=== PATIENT | male | born 1980 | race Hispanic/Latino ===

== ENCOUNTER 2018-05-04 10:45 | Emergency (ER) | payer SELFPAY ==
[2018-05-04 11:16] LABS: Absolute Lymphocytes (CBC) 0.9 K/uL (0.7-4.9); Absolute Monocytes 0.5 K/uL (0.1-1.3); Absolute Neutrophil 6.8 K/uL (1.8-8.0); Basophils % 0.2 % (0-1.3); Eosinophils % 0.4 % (0-4.4); Hematocrit 44.3 % (39.6-49.0); Lymphocytes % 10.6 % (15.3-44.8); MCH 30.4 pg (27.0-35.0); MCV 88.5 fL (80-100); Monocytes % 6.5 % (3.3-12.3); Protime INR 1.07
[2018-05-04 11:28] LABS: ALT/SGPT 29 U/L (12-78); AST/SGOT 17 U/L (15-37); Albumin 4.3 g/dL (3.4-5.0); Alkaline Phosphatase 108 U/L (45-117); BUN Blood Urea Nitrogen 12 mg/dL (7-18); Bicarbonate 25 mmol/L (21-32); Bilirubin Total 2.6 mg/dL (0.2-1.0); Glucose Level 104 mg/dL (74-106); Magnesium 2.2 mg/dL (1.8-2.4); NT PRO-BNP 64 pg/mL (<125); Potassium 3.6 mmol/L (3.5-5.1); Protein, Total 7.9 g/dL (6.4-8.2); Sodium Level 140 mmol/L (136-145); Troponin (Emerg Dept Use Only) < 0.02 ng/mL (0.0-0.045)
--- NOTE | 2018-05-04 11:29 | RAD REPORT ---
EXAM DESCRIPTION: RAD - Chest Single View - 05/04/2018 11:23 am CLINICAL HISTORY: CHEST PAIN Chest pain. COMPARISON: Chest Pa And Lat (2 Views) dated 03/19/2016 FINDINGS: Portable technique limits examination quality. The lungs are grossly clear. The heart is normal in size. No displaced fractures. IMPRESSION: No acute intrathoracic process suspected.
--- NOTE | 2018-05-04 12:10 | EKG ---
Test Date: 2018-05-04 Test Time: 10:47:40 Electrical Construction Project Manager: ADRIANNE/Arthur MEASUREMENT RESULTS: Intervals: Rate: 71 IL: 154 QRSD: 88 QT: 370 QTc: 402 Mazon: P: 56 IL: 154 QRS: -6 T: 28 INTERPRETIVE STATEMENTS: Normal sinus rhythm Normal ECG No previous ECG available for comparison Electronically Signed On 05-04-18 12:09:48 CDT by Hitesh Gonzalez
--- NOTE | 2018-05-04 12:25 | RAD REPORT ---
EXAM DESCRIPTION: US - Abdomen Exam Limited - 05/04/2018 12:14 pm CLINICAL HISTORY: Abdominal pain COMPARISON: None. FINDINGS: No gallstones are identified. Gallbladder size is normal. There is no wall thickening or p ericholecystic fluid. No gallstones are seen. There are two 4 mm or less echogenic nonshadowing foci adherent to the gallbladder wall. These have a typical appearance for small gallbladder polyps. These are not regarded as suspicious at this size. No common duct stone or biliary tree dilatation identified. IMPRESSION: No gallstone or acute gallbladder finding. Two small polyps are identified. No biliary tree abnormality.
--- NOTE | 2018-05-04 12:30 | ER ---
Nurse's Notes [facility] Name: Gen Cast Age: 38 yrs Sex: Male : 1980 Arrival Date: 05/04/2018 Time: 10:49 Bed 14 Private MD: Diagnosis: Other chest pain Presentation: 05/04 10:50 Presenting complaint: Patient states: left sided chest pain started around 0900 thi iw morning while in police custody, describes pain as sharp and pulsating, non radiating. EMS reports pt had previous hx of CP 5 years ago while in police custody, rates pain 8/10. Transition of care: patient was not received from another setting of care. Onset of symptoms was May 04, 2018. Risk Assessment: Do you want to hurt yourself or someone else? Patient reports no desire to harm self or others. Initial Sepsis Screen: Does the patient meet any 2 criteria? No. Patient's initial sepsis screen is negative. Does the patient have a suspected source of infection? No. Patient's initial sepsis screen is negative. Care prior to arrival: Glucose check: 103. 10:50 Method Of Arrival: EMS: [facility] iw 10:50 Acuity: DONN 3 iw Historical: - Allergies: 10:54 NKA; iw - Home Meds: 10:54 None [Active]; iw - PMHx: 10:54 None; iw - PSHx: 10:54 None; iw - Immunization history:: Adult Immunizations not up to date. - Social history:: Smoking status: Patient uses tobacco products, denies chronic smoking, but will smoke occasionally, Patient/guardian denies using alcohol, the patient reports quitting approximately [address], [address] drugs, the patient reports quitting approximately 5 years ago. - Ebola Screening: : Patient negative for fever greater than or equal to 101.5 degrees Fahrenheit, and additional compatible Ebola Virus Disease symptoms Patient denies exposure to infectious person Patient denies travel to an Ebola-affected area in the 21 days before illness onset No symptoms or risks identified at this time. Screenin:34 Abuse screen: Denies threats or abuse. Nutritional screening: No deficits noted. tw2 Tuberculosis screening: No symptoms or risk factors identified. Fall Risk None identified. Assessment: 10:55 General: Appears in no apparent distress. Behavior is appropriate for age. Pain: tw2 Complains of pain in chest Pain does not radiate. Pain began suddenly. Neuro: Level of Consciousness is awake, alert, obeys commands, Oriented to person, place, time, situation. Cardiovascular: Heart tones S1 S2 Capillary refill < 3 seconds Patient's skin is warm and dry. Respiratory: Airway is patent Respiratory effort is even, unlabored, Respiratory pattern is regular, symmetrical, Breath sounds are clear bilaterally. GI: No signs and/or symptoms were reported involving the gastrointestinal system. Abdomen is flat, Bowel sounds present X 4 quads. : No signs and/or symptoms were reported regarding the genitourinary system. EENT: No signs and/or symptoms were reported regarding the EENT system. Derm: No signs and/or symptoms reported regarding the dermatologic system. Skin is intact, is healthy with good turgor, Skin is dry, Skin temperature is warm. Musculoskeletal: Circulation, motion, and sensation intact. pt remains in hand cuffs at this time, with [employer] at bedside. 12:16 Reassessment: Patient appears in no apparent distress at this time. No changes from tw2 previously documented assessment. Patient and/or family updated on plan of care and expected duration. Pain level reassessed. Patient is alert, oriented x 3, equal unlabored respirations, skin warm/dry/pink. 12:34 Reassessment: Patient appears in no apparent distress at this time. No changes from tw2 previously documented assessment. Patient and/or family updated on plan of care and expected duration. Pain level reassessed. Patient is alert, oriented x 3, equal unlabored respirations, skin warm/dry/pink. Vital Signs: 10:55 BP 121 / 76; Pulse 70; Resp 16; Temp 98.2; Pulse Ox 99% on R/A; Weight 81.65 kg; Height iw 5 ft. 5 in. (165.10 cm); Pain 8/10; 12:15 BP 123 / 81; Pulse 73; Resp 17; Pulse Ox 97% on R/A; tw2 10:55 Body Mass Index 29.95 (81.65 kg, 165.10 cm) iw ED Course: 10:49 Patient arrived in ED. iw 10:50 Suraj Carbone MD is Attending Physician. ps1 10:50 EKG done, by oil change technician. reviewed by Suraj Carbone MD. at1 10:54 Triage completed. iw 10:55 Patient maintains SpO2 saturation greater than 95% on room air. tw2 10:55 Arm band placed on. iw 10:57 Initial lab(s) drawn, by me, sent to lab. Inserted saline lock: 20 gauge in right 5 antecubital area, using aseptic technique. Blood collected. 10:58 Patient has correct armband on for positive identification. Bed in low position. Side mh5 rails up X2. Adult w/ patient. nurse monitoring on. Pulse ox on. NIBP on. 10:59 CBC with Diff Sent. mh5 10:59 Magnesium Sent. mh5 10:59 NT PRO-BNP Sent. mh5 11:00 PT-INR Sent. 5 11:00 Troponin (emerg Dept Use Only) Sent. 5 11:19 Miriam Morrow, RN is Primary Nurse. tw2 11:21 X-ray completed. Portable x-ray completed in exam room. Patient tolerated procedure jb2 well. 11:24 XRAY Chest (1 view) In Process Unspecified. EDMS 12:15 Abdomen Limited US In Process Unspecified. EDMS 12:34 No provider procedures requiring assistance completed. IV discontinued, intact, tw2 bleeding controlled, No redness/swelling at site. Pressure dressing applied. Administered Medications: No medications were administered Outcome: 12:29 Discharge ordered by . ps1 12:35 Discharged to Law Enforcement tw2 12:35 Condition: stable 12:35 Discharge instructions given to patient, police, Instructed on discharge instructions, follow up and referral plans. Demonstrated understanding of instructions, follow-up care. 12:35 Patient left the ED. tw2 Signatures: Dispatcher [employer] EDMS Octavio Pineda jb2 Lamar Hubbard, RN RN Lyn Mishra, composite bond worker EKG Tat1 Miriam Morrow, KATH STOCKTON 2 Stephanie Jack 5 Suraj Carbone MD MD ps1
--- NOTE | 2018-05-04 12:31 | EDPHYS ---
Physician Documentation [facility] Name: Gen Cast Age: 38 yrs Sex: Male : 1980 Arrival Date: 05/04/2018 Time: 10:49 Bed 14 Private MD: ED Physician Suraj Carbone HPI: 05/04 10:50 This 38 yrs old Male presents to ER via Unassigned with complaints of chest ps1 pain. 10:50 patient presenting with chest pain after less than 24 hour incarceration from [place] [id number] office. 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 Substernal left arm. Rated as moderate. Previous evaluation 5 years ago for same while incarcerated. . Historical: - Allergies: 10:54 NKA; iw - Home Meds: 10:54 None [Active]; iw - PMHx: 10:54 None; iw - PSHx: 10:54 None; iw - Immunization history:: Adult Immunizations not up to date. - Social history:: Smoking status: Patient uses tobacco products, denies chronic smoking, but will smoke occasionally, Patient/guardian denies using alcohol, the patient reports quitting approximately [address] ago, [address] drugs, the patient reports quitting approximately 5 years ago. - Ebola Screening: : Patient negative for fever greater than or equal to 101.5 degrees Fahrenheit, and additional compatible Ebola Virus Disease symptoms Patient denies exposure to infectious person Patient denies travel to an Ebola-affected area in the 21 days before illness onset No symptoms or risks identified at this time. ROS: 10:53 Constitutional: Negative for fever, chills, and weight loss, Eyes: Negative for injury, ps1 pain, redness, and discharge, Respiratory: Negative for shortness of breath, cough, wheezing, and pleuritic chest pain, Abdomen/GI: Negative for abdominal pain, nausea, vomiting, diarrhea, and constipation, MS/Extremity: Negative for injury and deformity, Skin: Negative for injury, rash, and discoloration, Neuro: Negative for headache, weakness, numbness, tingling, and seizure. 10:53 Cardiovascular: Positive for chest pain. Exam: 10:53 Constitutional: This is a well developed, well nourished patient who is awake, alert, ps1 and in no acute distress. Head/Face: Normocephalic, atraumatic. Eyes: Pupils equal round and reactive to light, extra-ocular motions intact. Lids and lashes normal. Conjunctiva and sclera are non-icteric and not injected. Cardiovascular: Regular rate and rhythm. No gallops, murmurs, or rubs. Normal PMI, no JVD. No pulse deficits. Respiratory: Lungs have equal breath sounds bilaterally, clear to auscultation and percussion. No rales, rhonchi or wheezes noted. No increased work of breathing, no retractions or nasal flaring. Abdomen/GI: Soft, non-tender, with normal bowel sounds. No distension or tympany. No guarding or rebound. No evidence of tenderness throughout. 10:53 Skin: Appearance: multiple tattoos, no evidence of trauma to chest. Vital Signs: 10:55 BP 121 / 76; Pulse 70; Resp 16; Temp 98.2; Pulse Ox 99% on R/A; Weight 81.65 kg; Height iw 5 ft. 5 in. (165.10 cm); Pain 8/10; 12:15 BP 123 / 81; Pulse 73; Resp 17; Pulse Ox 97% on R/A; tw2 10:55 Body Mass Index 29.95 (81.65 kg, 165.10 cm) iw MDM: 11:16 Patient medically screened. ps1 12:30 Data reviewed: vital signs, nurses notes, lab test result(s), EKG, radiologic studies, ps1 ultrasound, and as a result, I will discharge patient. Counseling: I had a detailed discussion with the patient and/or guardian regarding: the historical points, exam findings, and any diagnostic results supporting the discharge/admit diagnosis, lab results, radiology results, the need for outpatient follow up. Special discussion: Based on the patient's history, exam, and Dx evaluation, there is no indication for emergent intervention or inpatient Tx. It is understood by the patient/guardian that if the Sx's persist or worsen they need to return immediately for re-evaluation. 05/04 10:57 Order name: CBC with Diff; Complete Time: 11:17 ps1 05/04 10:57 Order name: Magnesium; Complete Time: 11:44 ps1 05/04 10:57 Order name: NT PRO-BNP; Complete Time: 11:44 ps1 05/04 10:57 Order name: PT-INR; Complete Time: 11:44 ps1 05/04 10:57 Order name: Troponin (emerg Dept Use Only); Complete Time: 11:44 ps1 05/04 10:57 Order name: CMP; Complete Time: 11:44 ps1 05/04 10:57 Order name: XRAY Chest (1 view); Complete Time: 11:44 ps1 05/04 10:57 Order name: EKG; Complete Time: 10:57 ps1 05/04 10:57 Order name: Cardiac monitoring; Complete Time: 11:19 ps1 05/04 10:57 Order name: EKG - Nurse/Tech; Complete Time: 11:19 ps1 05/04 10:57 Order name: IV Saline Lock; Complete Time: 11:00 ps1 05/04 10:57 Order name: Labs collected and sent; Complete Time: 11:19 ps1 05/04 10:57 Order name: O2 Per Protocol; Complete Time: 11: ps1 05/04 11:45 Order name: Abdomen Limited US; Complete Time: 12:29 ps1 05/04 10:57 Order name: O2 Sat Monitoring; Complete Time: 11:19 ps1 EC:47 Rate is 71 beats/min. Rhythm is regular. QRS [place] is Normal. PA interval is normal. QRS ps1 interval is normal. QT interval is normal. No Q waves. T waves are Normal. No ST changes noted. Clinical impression: Normal ECG. Interpreted by me. Administered Medications: No medications were administered Disposition: 05/04/18 12:29 Discharged to Home. Impression: Other chest pain. - Condition is Stable. - Discharge Instructions: Nonspecific Chest Pain. - Medication Reconciliation Form, Thank You Letter, Antibiotic Education, Prescription Opioid Use form. - Follow up: Private Physician; When: As needed; Reason: Further diagnostic work-up, Recheck today's complaints, Re-evaluation by your physician. Follow up: Emergency Department; When: As needed; Reason: Worsening of condition. - Problem is new. - Symptoms have improved. Signatures: Dispatcher [employer] EDMS Lamar Hubbard RN RN iw Miriam Morrow RN RN tw2 Suraj Carbone MD MD ps1 Corrections: (The following items were deleted from the chart) 12:35 12:29 05/04/2018 12:29 Discharged to Home. Impression: Other chest pain. Condition is tw2 Stable. Forms are Medication Reconciliation Form, Thank You Letter, Antibiotic Education, Prescription Opioid Use. Follow up: Private Physician; When: As needed; Reason: Further diagnostic work-up, Recheck today's complaints, Re-evaluation by your physician. Follow up: Emergency Department; When: As needed; Reason: Worsening of condition. Problem is new. Symptoms have improved. ps1
== END 2018-05-04 12:35 | disposition home or self-care (01) ==
LOC: ER 10:45
DX: R07.89 Other chest pain (principal); Z72.0 Tobacco use
CPT/HCPCS: 36415; 71045; 76705; 80053; 83735; 83880; 84484; 85025; 85610; 93005; 99285

== ENCOUNTER 2019-01-15 11:53 | Inpatient (IN) | payer SELFPAY ==
[2019-01-15] MEDS ORDERED: ONDANSETRON 4 MG/2 ML VIAL ONE (12:40)
[2019-01-15] MEDS ORDERED: MORPHINE 4 MG/ML SYR ONE ×2 (12:40→13:39)
[2019-01-15] MEDS ORDERED: NA CHLORIDE 0.9% 1,000 ML ONE ×2 (12:40→15:12)
[2019-01-15 12:48] LABS: Absolute Lymphocytes (CBC) 0.8 K/uL (0.7-4.9); Basophils % 0.4 % (0-1.3); Hematocrit 41.2 % (39.6-49.0); Lymphocytes % 6.6 % (15.3-44.8); MPV 9.2 fL (7.6-11.3); Monocytes % 11.2 % (3.3-12.3); RBC Red Blood Cell Count 4.48 M/uL (4.33-5.43)
[2019-01-15 13:04] LABS: Albumin 3.5 g/dL (3.4-5.0); Bilirubin Direct 0.8 mg/dL (0-0.2); Bilirubin Total 2.5 mg/dL (0.2-1.0); Potassium 3.7 mmol/L (3.5-5.1); Protein, Total 8.1 g/dL (6.4-8.2)
[2019-01-15 13:32] LABS: Urine Blood NEGATIVE (NEG); Urine Glucose TRACE (NEG); Urine Protein 2+ (NEG)
[2019-01-15 13:35] LABS: Urine Amorphous Sediment 1+ /HPF (NONE SEEN); Urine Bacteria <20 /HPF (NONE SEEN); Urine Culture Reflex Order NOT NEEDED; Urine Mucus 4+ /HPF (NONE SEEN); Urine RBC <5 /HPF (NONE SEEN)
--- NOTE | 2019-01-15 14:37 | RAD REPORT ---
EXAM DESCRIPTION: CTAbdomen Pelvis W Contrast - 01/15/2019 2:26 pm CLINICAL HISTORY: Abdominal pain. suprapubic pain COMPARISON: No comparisons TECHNIQUE: Biphasic CT imaging of the abdomen and pelvis was performed with 100 ml non-ionic IV cont rast. All CT scans are performed using dose optimization technique as appropriate and may include automated exposure control or mA/KV adjustment according to patient size. FINDINGS: Linear subsegmental atelectasis is present in both lung bases. Mild fatty liver is seen. Spleen, pancreas adrenal glands and kidneys within normal limits. Significant inflammatory changes seen involving the sigmoid colon where there is intramural thickenin g and inflammation. Moderate inflammatory changes are seen in the left inferior pelvis extending adonis g the superior margin of the urinary bladder on the left. Secondary inflammatory changes of the urina ry bladder suspected. Peridiverticular abscesses are present along the sigmoid colon wall superiorly measuring 4.3 x 2.8 cm and more inferiorly measuring 3.7 x 2.1 cm. No free air is seen. No bowel obs truction. No suspicious bony findings. Bilateral fat containing inguinal hernias. IMPRESSION: A severe acute diverticulitis of the sigmoid colon is present with peridiverticular absc esses along the sigmoid colon henderson present. There is evidence of secondary inflammation of the urina ry bladder present. Advise followup colonoscopy after appropriate treatment for further assessment.
[2019-01-15] MEDS ORDERED: MORPHINE 2 MG/ML SYR ONE (15:12)
[2019-01-15] MEDS ORDERED: METRONIDAZOLE 500mg IVPB 500 MG/100 ML BAG IV ONE (15:12)
[2019-01-15] MEDS ORDERED: Levofloxacin 750mg IV 750 MG/150 ML BAG IV ONE (15:12)
--- NOTE | 2019-01-15 15:16 | EDPHYS ---
Physician Documentation [facility] Name: Gen Cast Age: 38 yrs Sex: Male : 1980 Arrival Date: 01/15/2019 Time: 11:55 Bed 17 Private MD: ED Physician Hai Dorsey HPI: 01/15 12:20 This 38 yrs old Male presents to ER via Ambulatory with complaints of pm1 Abdominal pain. 12:20 The patient presents with abdominal pain Suprapubic area. Onset: The symptoms/episode pm1 began/occurred 6 day(s) ago. The symptoms do not radiate. Associated signs and symptoms: Pertinent positives: Constipation for 2-3 days with resolution of symptoms about 2 days ago with the use of OTC medications, Pertinent negatives: nausea, vomiting, and diarrhea. The symptoms are described as achy, constant. Modifying factors: The symptoms are alleviated by nothing, the symptoms are aggravated by nothing. Severity of pain: in the emergency department the pain is actually worse. The patient has not experienced similar symptoms in the past. The patient has not recently seen a physician, and does not have an established primary care provider. Historical: - Allergies: 12:17 NKA; iw - Home Meds: 12:17 None [Active]; iw - PMHx: 12:17 None; iw - PSHx: 12:17 None; iw - Immunization history:: Adult Immunizations not up to date. - Social history:: Smoking status: Patient uses tobacco products, smokes one pack cigarettes per day. - Ebola Screening: : Patient negative for fever greater than or equal to 101.5 degrees Fahrenheit, and additional compatible Ebola Virus Disease symptoms Patient denies exposure to infectious person Patient denies travel to an Ebola-affected area in the 21 days before illness onset No symptoms or risks identified at this time. ROS: 12:20 Constitutional: Negative for fever, chills, and weight loss, Eyes: Negative for injury, pm1 pain, redness, and discharge, ENT: Negative for injury, pain, and discharge, Neck: Negative for injury, pain, and swelling, Cardiovascular: Negative for chest pain, palpitations, and edema, Respiratory: Negative for shortness of breath, cough, wheezing, and pleuritic chest pain. 12:20 Abdomen/GI: Positive for abdominal pain. 12:20 Back: Negative for injury and pain, : Negative for injury, bleeding, discharge, and pm1 swelling, MS/Extremity: Negative for injury and deformity, Skin: Negative for injury, rash, and discoloration, Neuro: Negative for headache, weakness, numbness, tingling, and seizure. 12:20 Abdomen/GI: Positive for constipation, Yesterday saw trace amount of bright red blood in stool after large bowel movement with constipation but none present today with BM in AM, Negative for nausea, vomiting, and diarrhea. Exam: 12:20 Constitutional: This is a well developed, well nourished patient who is awake, alert, pm1 and in no acute distress. Head/Face: Normocephalic, atraumatic. Eyes: Pupils equal round and reactive to light, extra-ocular motions intact. Lids and lashes normal. Conjunctiva and sclera are non-icteric and not injected. Cornea within normal limits. Periorbital areas with no swelling, redness, or edema. ENT: Nares patent. No nasal discharge, no septal abnormalities noted. Tympanic membranes are normal and external auditory canals are clear. Oropharynx with no redness, swelling, or masses, exudates, or evidence of obstruction, uvula midline. Mucous membranes moist. Neck: Trachea midline, no thyromegaly or masses palpated, and no cervical lymphadenopathy. Supple, full range of motion without nuchal rigidity, or vertebral point tenderness. No Meningismus. Chest/axilla: Normal chest wall appearance and motion. Nontender with no deformity. No lesions are appreciated. Cardiovascular: Regular rate and rhythm with a normal S1 and S2. No gallops, murmurs, or rubs. Normal PMI, no JVD. No pulse deficits. Respiratory: Lungs have equal breath sounds bilaterally, clear to auscultation and percussion. No rales, rhonchi or wheezes noted. No increased work of breathing, no retractions or nasal flaring. 12:20 Back: No spinal tenderness. No costovertebral tenderness. Full range of motion. Skin: Warm, dry with normal turgor. Normal color with no rashes, no lesions, and no evidence of cellulitis. MS/ Extremity: Pulses equal, no cyanosis. Neurovascular intact. Full, normal range of motion. 12:20 Abdomen/GI: Inspection: abdomen appears normal, Palpation: soft, moderate abdominal tenderness, in the suprapubic area, mass, is not appreciated, rebound tenderness, is appreciated in the right lower quadrant and left lower quadrant. 12:20 Neuro: Orientation: is normal, Motor: is normal, moves all fours. Vital Signs: 12:17 BP 113 / 94; Pulse 85; Resp 16; Temp 97.9(O); Pulse Ox 99% on R/A; Weight 83.01 kg; iw Height 5 ft. 6 in. (167.64 cm); Pain 10/10; 13:00 BP 117 / 79; Pulse 83; Resp 18; Pulse Ox 99% on R/A; Pain 10/10; em 14:00 BP 115 / 75; Pulse 84; Resp 18; Pulse Ox 97% on R/A; em 14:21 BP 120 / 88; Pulse 80; Resp 20; Pulse Ox 98% on R/A; Pain 10/10; em 15:45 BP 118 / 76; Pulse 85; Resp 22; Temp 99.0(O); Pulse Ox 99% on R/A; Pain 10/10; em 12:17 Body Mass Index 29.54 (83.01 kg, 167.64 cm) iw MDM: 12:02 Patient medically screened. pm1 14:51 Counseling: I had a detailed discussion with the patient and/or guardian regarding: the pm1 historical points, exam findings, and any diagnostic results supporting the discharge/admit diagnosis, lab results, radiology results, the need for further work-up and treatment in the hospital. 14:55 Physician consultation: Gerardo Sheriff MD was called at 14:55, was contacted at 14:55, pm1 regarding consult, patient's condition, Request contact radiologist to determine if abscesses can be drained percutaneously. If not, then admit patient to hospitalist and initial treatment with IV antibiotics. Initial choice Invanz. Informed already gave Levaquin and Flagyl in ER, therefore he recommended Invanz tomorrow. 15:10 Physician consultation: Lev Goodman MD was called at 15:01, was contacted at 15:05, pm1 regarding consult, discussed if abscesses can be drained percutaneously. They cannot be drained safely due to abscesses being intramural . 15:13 Physician consultation: Mejia Reina MD was called at 15:13, was contacted at 15:13, pm1 regarding admission, patient's condition, and will see patient in ED. 15:42 Data reviewed: vital signs. Data interpreted: Pulse oximetry: on room air is 98 %. pm1 Interpretation: normal. 01/15 12:20 Order name: Basic Metabolic Panel; Complete Time: 13:06 pm1 01/15 12:20 Order name: CBC with Diff; Complete Time: 13:06 pm1 01/15 12:20 Order name: Creatinine for Radiology; Complete Time: 13:07 pm1 01/15 12:20 Order name: Hepatic Function; Complete Time: 13:06 pm1 01/15 12:20 Order name: Lipase; Complete Time: 13:06 pm1 01/15 12:20 Order name: Urine Microscopic Only; Complete Time: 13:37 pm1 01/15 12:20 Order name: CT Abd/Pelvis - PO and IV Contrast; Complete Time: 14:44 pm1 01/15 12:27 Order name: Urine Dipstick--Ancillary (enter results); Complete Time: 13:37 3 01/15 14:52 Order name: Blood Culture Adult (2) pm1 01/15 12:20 Order name: IV Saline Lock; Complete Time: 12:41 pm1 01/15 12:20 Order name: Labs collected and sent; Complete Time: 12:41 pm1 01/15 12:20 Order name: Urine Dipstick-Ancillary (obtain specimen); Complete Time: 12:41 pm1 01/15 14:47 Order name: NPO; Complete Time: 14:51 pm1 01/15 15:35 Order name: CONS Pharmacy Consult [facility] 01/15 15:35 Order name: CONS Physician Consult [facility] 01/15 15:35 Order name: NPO [facility] Administered Medications: 12:30 Drug: NS 0.9% 1000 ml Route: IV; Rate: 1000 ml; Site: right antecubital; em 13:25 Follow up: IV Status: Completed infusion; IV Intake: 1000ml em 12:32 Drug: Zofran 4 mg Route: IVP; Site: right antecubital; iw 13:25 Follow up: Response: No adverse reaction em 12:35 Drug: morphine 4 mg Route: IVP; Site: right antecubital; iw 13:25 Follow up: Response: No adverse reaction; Pain is unchanged, physician notified em 13:30 Drug: morphine 4 mg Route: IVP; Site: right antecubital; em 14:00 Follow up: Response: No adverse reaction em 15:05 Drug: morphine 2 mg Route: IVP; Site: right antecubital; em 15:30 Follow up: Response: No adverse reaction; Pain is unchanged, physician notified em 15:07 Drug: NS 0.9% 1000 ml Route: IV; Rate: 100 ml/hr; Site: right antecubital; em 16:20 Follow up: IV Status: Infusion continued upon admission; IV Intake: 700ml iw 15:23 Drug: LevaQUIN 750 mg Volume: 150 ml; Route: IVPB; Infused Over: 90 mins; Site: left em antecubital; 16:38 Follow up: Response: No adverse reaction; IV Status: Infusion continued upon admission; em IV Intake: 75ml 15:23 Drug: Flagyl 500 mg Volume: 100 ml; Route: IVPB; Rate: 200 ml/hr; Infused Over: 30 em mins; Site: right antecubital; 16:13 Follow up: Response: No adverse reaction; IV Status: Completed infusion; IV Intake: em 100ml 16:10 Drug: fentaNYL (PF) 25 mcg Route: IVP; Site: right antecubital; iw 16:39 Follow up: Response: No adverse reaction em Disposition: 01/15/19 15:15 Hospitalization ordered by Mejia Reina for Inpatient Admission. Preliminary diagnosis is Diverticulitis of large intestine with perforation and abscess. - Bed requested for Telemetry/MedSurg (Inpatient). - Status is Inpatient Admission. em - Condition is Stable. - Problem is new. - Symptoms have improved. UTI on Admission? No Addendum: 01/20/2019 02:07 Co-signature as Attending Physician, Hai Dorsey MD. m a2 Signatures: Dispatcher [employer] Esperanza Cisneros RN RN dw Erik Gallagher, PROGRAMMER ENGINEERING AND SCIENTIFIC PROGRAMMER ENGINEERING AND SCIENTIFIC em Lamar Hubbard RN RN iw Mega Guzman, SHOWER ROOM ATTENDANT SHOWER ROOM ATTENDANT pm1 Hai Dorsey MD MD ma2 Corrections: (The following items were deleted from the chart) 01/15 15:44 15:15 Hospitalization Ordered by Mejia Reina MD for Inpatient Admission. dw Preliminary diagnosis is Diverticulitis of large intestine with perforation and abscess. Bed requested for Telemetry/MedSurg (Inpatient). Status is Inpatient Admission. Condition is Stable. Problem is new. Symptoms have improved. UTI on Admission? No. pm1 16:39 15:44 01/15/2019 15:15 Hospitalization Ordered by Mejia Reina MD for Inpatient em Admission. Preliminary diagnosis is Diverticulitis of large intestine with perforation and abscess. Bed requested for Telemetry/MedSurg (Inpatient). Status is Inpatient Admission. Condition is Stable. Problem is new. Symptoms have improved. UTI on Admission? No. dw
--- NOTE | 2019-01-15 15:16 | ER ---
Nurse's Notes [facility] Name: Gen Cast Age: 38 yrs Sex: Male : 1980 Arrival Date: 01/15/2019 Time: 11:55 Bed 17 Private MD: Diagnosis: Diverticulitis of large intestine with perforation and abscess Presentation: 01/15 12:12 Presenting complaint: Patient states: suprapubic pain X 6 days, pain is so bad it's iw making him have hard time using bathroom, thought he was constipated, last BM was yesterday and normal, denies pain or burning with urination but urine is dark in color, denies vomiting. Transition of care: patient was not received from another setting of care. Onset of symptoms was January 10, 2019. Risk Assessment: Do you want to hurt yourself or someone else? Patient reports no desire to harm self or others. Initial Sepsis Screen: Does the patient meet any 2 criteria? No. Patient's initial sepsis screen is negative. Does the patient have a suspected source of infection? No. Patient's initial sepsis screen is negative. Care prior to arrival: None. 12:12 Method Of Arrival: Ambulatory iw 12:12 Acuity: DONN 3 iw Historical: - Allergies: 12:17 NKA; iw - Home Meds: 12:17 None [Active]; iw - PMHx: 12:17 None; iw - PSHx: 12:17 None; iw - Immunization history:: Adult Immunizations not up to date. - Social history:: Smoking status: Patient uses tobacco products, smokes one pack cigarettes per day. - Ebola Screening: : Patient negative for fever greater than or equal to 101.5 degrees Fahrenheit, and additional compatible Ebola Virus Disease symptoms Patient denies exposure to infectious person Patient denies travel to an Ebola-affected area in the 21 days before illness onset No symptoms or risks identified at this time. Screenin:20 Abuse screen: Denies threats or abuse. Nutritional screening: No deficits noted. em Tuberculosis screening: No symptoms or risk factors identified. Fall Risk None identified. Assessment: 12:20 General: Appears in no apparent distress. comfortable, Behavior is calm, anxious, em Reports fever for 12-24 hours. Pain: Complains of pain in suprapubic area, right lower quadrant and left lower quadrant Pain currently is 10 out of 10 on a pain scale. Neuro: Level of Consciousness is awake, alert, obeys commands, Oriented to person, place, time, situation. Cardiovascular: Capillary refill < 3 seconds Patient's skin is warm and dry. Respiratory: Airway is patent is compromised Respiratory effort is Respiratory pattern is regular, symmetrical. GI: Abdomen is flat, Bowel sounds present X 4 quads. Abd is soft X 4 quads Abdomen is tender to palpation in suprapubic area, right lower quadrant and left lower quadrant Reports bloody stool, Patient currently denies nausea, vomiting. : Denies burning with urination. Derm: Skin is intact, is healthy with good turgor, Skin is pink, warm \T\ dry. Musculoskeletal: Capillary refill < 3 seconds, Range of motion: intact in all extremities. 12:35 Reassessment: finished drinking PO contrast, tolerated well, CT dept. notified. em 13:00 Reassessment: Patient appears in no apparent distress at this time. I agree with above iw assessment by Erik Gallagher LVN. 13:10 Reassessment: Patient appears in no apparent distress at this time. Patient and/or em family updated on plan of care and expected duration. Pain level reassessed. Patient is alert, oriented x 3, equal unlabored respirations, skin warm/dry/pink. pain unchanged, provider notified. 14:00 Reassessment: Patient appears in no apparent distress at this time. Patient and/or em family updated on plan of care and expected duration. Pain level reassessed. Patient is alert, oriented x 3, equal unlabored respirations, skin warm/dry/pink. 15:21 Reassessment: Patient appears in no apparent distress at this time. Patient and/or em family updated on plan of care and expected duration. Pain level reassessed. Patient is alert, oriented x 3, equal unlabored respirations, skin warm/dry/pink. rates pain 10/10, provider notified. 16:15 Reassessment: Patient appears in no apparent distress at this time. reports pain em medication is 10/10, provider notified, new medication orders received. Vital Signs: 12:17 BP 113 / 94; Pulse 85; Resp 16; Temp 97.9(O); Pulse Ox 99% on R/A; Weight 83.01 kg; iw Height 5 ft. 6 in. (167.64 cm); Pain 10/10; 13:00 BP 117 / 79; Pulse 83; Resp 18; Pulse Ox 99% on R/A; Pain 10/10; em 14:00 BP 115 / 75; Pulse 84; Resp 18; Pulse Ox 97% on R/A; em 14:21 BP 120 / 88; Pulse 80; Resp 20; Pulse Ox 98% on R/A; Pain 10/10; em 15:45 BP 118 / 76; Pulse 85; Resp 22; Temp 99.0(O); Pulse Ox 99% on R/A; Pain 10/10; em 12:17 Body Mass Index 29.54 (83.01 kg, 167.64 cm) iw ED Course: 11:55 Patient arrived in ED. rg4 12:01 Mega Guzman NP is PHCP. pm1 12:01 Hai Dorsey MD is Attending Physician. pm1 12:17 Triage completed. iw 12:17 Arm band placed on. iw 12:20 Patient has correct armband on for positive identification. Placed in gown. Bed in low em position. Side rails up X2. Adult w/ patient. Pulse ox on. NIBP on. 12:22 Erik Gallagher LVN is Primary Nurse. em 12:26 Radiology exam delayed due to lab results not completed at this time. mw3 12:30 Initial lab(s) drawn, by me, sent to lab. Inserted saline lock: 20 gauge in right em antecubital area, using aseptic technique. Blood collected. 12:37 Radiology exam delayed due to PO contrast given. mw3 14:[address] via wheelchair. em2 14:27 CT Abd/Pelvis - PO and IV Contrast In Process Unspecified. EDMS 14:28 CT completed. Patient tolerated procedure well. Patient moved back from CT. em2 15:05 Inserted saline lock: 20 gauge in left antecubital area, using aseptic technique. em 15:05 First set of blood cultures drawn by me. em 15:14 Mejia Reina MD is Hospitalizing Provider. pm1 16:36 No provider procedures requiring assistance completed. Patient admitted, IV remains in em place. Administered Medications: 12:30 Drug: NS 0.9% 1000 ml Route: IV; Rate: 1000 ml; Site: right antecubital; em 13:25 Follow up: IV Status: Completed infusion; IV Intake: 1000ml em 12:32 Drug: Zofran 4 mg Route: IVP; Site: right antecubital; iw 13:25 Follow up: Response: No adverse reaction em 12:35 Drug: morphine 4 mg Route: IVP; Site: right antecubital; iw 13:25 Follow up: Response: No adverse reaction; Pain is unchanged, physician notified em 13:30 Drug: morphine 4 mg Route: IVP; Site: right antecubital; em 14:00 Follow up: Response: No adverse reaction em 15:05 Drug: morphine 2 mg Route: IVP; Site: right antecubital; em 15:30 Follow up: Response: No adverse reaction; Pain is unchanged, physician notified em 15:07 Drug: NS 0.9% 1000 ml Route: IV; Rate: 100 ml/hr; Site: right antecubital; em 16:20 Follow up: IV Status: Infusion continued upon admission; IV Intake: 700ml iw 15:23 Drug: LevaQUIN 750 mg Volume: 150 ml; Route: IVPB; Infused Over: 90 mins; Site: left em antecubital; 16:38 Follow up: Response: No adverse reaction; IV Status: Infusion continued upon admission; em IV Intake: 75ml 15:23 Drug: Flagyl 500 mg Volume: 100 ml; Route: IVPB; Rate: 200 ml/hr; Infused Over: 30 em mins; Site: right antecubital; 16:13 Follow up: Response: No adverse reaction; IV Status: Completed infusion; IV Intake: em 100ml 16:10 Drug: fentaNYL (PF) 25 mcg Route: IVP; Site: right antecubital; iw 16:39 Follow up: Response: No adverse reaction em Intake: 13:25 IV: 1000ml; Total: 1000ml. em 16:13 IV: 100ml; Total: 1100ml. em 16:20 IV: 700ml; Total: 1800ml. iw 16:38 IV: 75ml; Total: 1875ml. em Outcome: 15:15 Decision to Hospitalize by Provider. pm1 16:36 Admitted to Med/surg accompanied by tech, family with patient, via stretcher, room 412, em with chart, Report called to KATH Lagos 16:36 Condition: good 16:36 Instructed on the need for admit, Demonstrated understanding of instructions. 16:39 Patient left the ED. em Signatures: Dispatcher [employer] EDErik Castellanos, CONSOLE ATTENDANT CONSOLE ATTENDANT em Lamar Hubbard, KATH RN iw Jay Pennington em2 Mega Guzman, JHONY ENGINEERING DESIGNER pm1 Sherly Corley rg4 Mariajose Lennon mw3 Corrections: (The following items were deleted from the chart) 14:21 14:00 Reassessment: Patient appears in no apparent distress at this time. Patient em and/or family updated on plan of care and expected duration. Pain level reassessed. Patient is alert, oriented x 3, equal unlabored respirations, skin warm/dry/pink. iw 15:39 14:00 BP 115 / 75; Pulse 84bpm; Resp 18bpm; Pulse Ox 97% RA; iw em
[2019-01-15] MEDS ORDERED: MORPHINE 2 MG/ML SYR IV PRN ×2 (15:22→16:48)
[2019-01-15] MEDS ORDERED: NA CHLORIDE 0.9% 1,000 ML IV SCH ×2 (16:00→17:00)
[2019-01-15] MEDS ORDERED: FENTANYL CITR 100 MCG/2 ML ONE (16:20)
[2019-01-15] MEDS ORDERED: NALOXONE 0.4 MG/ML VIAL IV PRN (16:32)
[2019-01-15] MEDS ORDERED: D50W 25 GM/50 ML SYRINGE IV PRN (16:44)
[2019-01-15] MEDS ORDERED: GLUCAGON 1 MG/VIAL IM PRN (16:44)
[2019-01-15] MEDS: ENOXAPARIN 40 MG/0.4 ML SQ SCH (17:53)
[2019-01-15] MEDS: METRONIDAZOLE 500mg IVPB 500 MG/100 ML BAG IV SCH (17:53)
[2019-01-15] MEDS ORDERED: ERTAPENEM SODIUM 1 GM VIAL IVPB ONE (18:09)
--- NOTE | 2019-01-15 18:09 | P.HP ---
Certification for Inpatient With expected LOS: >2 Midnights Patient will require the following post-hospital care: None Practitioner: I am a practitioner with admitting privileges, knowledge of patient current condition, hospital course, and medical plan of care. Services: Services provided to patient in accordance with Admission requirements found in Title 42 Section 412.3 of the Code of Federal Regulations Patient History Date of Service: 01/15/19 Reason for admission: Severe diverticulitis abdominal pain History of Present Illness: Patient is 38 years of age has been complaining of severe abdominal pain for the past 3-4 months and was found to have severe diverticulitis of the sigmoid colon no prior history of GI problems or any medical problems he does not take any medications Allergies No Known Allergies Allergy (Verified 01/15/19 17:31) Home Medications: NK [No Home Meds] 01/15/19 - Past Medical/Surgical History Diabetic: No - Family History Mother -: Hypertension Father -: Diabetes - Social History Smoking Status: Current some day smoker Alcohol use: Yes CD- Drugs: Yes Caffeine use: No Place of Residence: Home Review of Systems General: Weakness Gastrointestinal: Abdominal Pain Physical Examination - Vital Signs Temperature: 99.1 F Blood Pressure: 105/73 Pulse: 89 Respirations: 18 Pulse Ox (%): 94 - Physical Exam General: Alert, Severe distress Neck: Supple Respiratory: Clear to auscultation bilaterally Cardiovascular: No edema, Regular rate/rhythm Gastrointestinal: Tenderness (Severe tenderness in the left lower quadrant) - Studies Laboratory Data (last 24 hrs) 01/15/19 12:35: Creatinine 1.24 01/15/19 12:35: WBC 11.7 H, Hgb 14.0, Hct 41.2, Plt Count 253 01/15/19 12:35: Sodium 136, Potassium 3.7, BUN 15, Creatinine 1.27, Glucose 134 H, Total Bilirubin 2.5 H, AST 49 H, ALT 96 H, Alkaline Phosphatase 190 H, Lipase 53 L Assessment and Plan - Problems (Diagnosis) (1) Diverticulitis Current Visit: Yes Status: Acute Plan: Patient is 38 years of age admitted with severe diverticulitis he also has better diverticular abscess labs reviewed abnormal liver function tests and renal function patient started on IV antibiotics seen by general surgery pain relief continue with IV fluids NPO - Advance Directives Does patient have a Living Will: No Does patient have a Durable POA for Healthcare: No
[2019-01-15] MEDS ORDERED: ERTAPENEM NA 1 GM in NA CHLORIDE 0.9% 100 ML IVPB SCH (19:00)
[2019-01-15] MEDS: HYDROMORPHONE/PCA 10 MG/50 ML SYR IV PRN (20:11)
[2019-01-15] MEDS: INSULIN -REGULAR HUMAN 50 UNIT/0.5 ML ML SQ SCH (21:00)
[2019-01-16] MEDS: D5 0.9 NS 1,000 ML IV SCH ×4 (01:28→22:27)
[2019-01-16] MEDS: METRONIDAZOLE 500mg IVPB 500 MG/100 ML BAG IV SCH ×4 (06:22→18:15)
[2019-01-16 06:33] LABS: Albumin 2.7 g/dL (3.4-5.0); Bilirubin Direct 0.9 mg/dL (0-0.2); Magnesium 2.1 mg/dL (1.8-2.4); Phosphorus 2.3 mg/dL (2.5-4.9); Potassium 3.7 mmol/L (3.5-5.1); Protein, Total 6.7 g/dL (6.4-8.2)
[2019-01-16 06:44] LABS: Absolute Lymphocytes (CBC) 1.5 K/uL (0.7-4.9); Basophils % 0.5 % (0-1.3); Eosinophils % 1.2 % (0-4.4); Hematocrit 34.3 % (39.6-49.0); Lymphocytes % 14.2 % (15.3-44.8); MPV 8.7 fL (7.6-11.3); Monocytes % 13.8 % (3.3-12.3); RBC Red Blood Cell Count 3.72 M/uL (4.33-5.43)
[2019-01-16] MEDS: INSULIN -REGULAR HUMAN 50 UNIT/0.5 ML ML SQ SCH ×4 (07:30→21:00)
[2019-01-16] MEDS: MORPHINE 2 MG/ML SYR IV PRN ×4 (09:55→22:24)
[2019-01-16] MEDS: HYDROMORPHONE/PCA 10 MG/50 ML SYR IV PRN ×2 (10:09→22:46)
--- NOTE | 2019-01-16 10:27 | P.PN ---
Subjective Date of Service: 01/16/19 Chief Complaint: Severe diverticulitis abdominal pain Subjective: Improving (has some mild pain improvement with MASTER FISHER dilaudid, but still has significant pain, passing gas, no nausea or emesis.) Physical Examination - Vital Signs Temperature: 97.3 F Blood Pressure: 105/70 Pulse: 88 Respirations: 24 Pulse Ox (%): 97 - Physical Exam General: Alert, Mild distress HEENT: Mucous membr. moist/pink Gastrointestinal: Other (soft, moderate global TTP greatest at suprapubic position, mild improvement from prior exam) - Studies Laboratory Data (last 24 hrs) 01/15/19 12:35: Creatinine 1.24 01/15/19 12:35: WBC 11.7 H, Hgb 14.0, Hct 41.2, Plt Count 253 01/15/19 12:35: Sodium 136, Potassium 3.7, BUN 15, Creatinine 1.27, Glucose 134 H, Total Bilirubin 2.5 H, AST 49 H, ALT 96 H, Alkaline Phosphatase 190 H, Lipase 53 L Assessment And Plan - Current Problems (Diagnosis) (1) Colonic diverticular abscess Current Visit: Yes Status: Acute Plan: - Continue MASTER FISHER dilaudid with morphine for breakthrough pain, change interval to Q4 and will modify as needed - Single dose of Invanz, then return to levaquin and flagyl - ambulate with assist - Serial exams - IV hydration
--- NOTE | 2019-01-16 10:54 | P.PN ---
Subjective Date of Service: 01/16/19 Chief Complaint: Severe diverticulitis abdominal pain Subjective: No new changes (No new changes still complaining of abdominal pain on a morphine pump) Review of Systems Gastrointestinal: Abdominal Pain Physical Examination - Vital Signs Temperature: 97.3 F Blood Pressure: 105/70 Pulse: 88 Respirations: 24 Pulse Ox (%): 97 - Physical Exam General: Alert, Oriented x3 Respiratory: Clear to auscultation bilaterally Gastrointestinal: Tenderness (Patient has some deep tenderness now no rebound) - Studies Laboratory Data (last 24 hrs) 01/15/19 12:35: Creatinine 1.24 01/15/19 12:35: WBC 11.7 H, Hgb 14.0, Hct 41.2, Plt Count 253 01/15/19 12:35: Sodium 136, Potassium 3.7, BUN 15, Creatinine 1.27, Glucose 134 H, Total Bilirubin 2.5 H, AST 49 H, ALT 96 H, Alkaline Phosphatase 190 H, Lipase 53 L Assessment & Plan - Problems (Diagnosis) (1) Diverticulitis Current Visit: Yes Status: Acute Plan: Admitted with diverticulitis continue with present medication white count is declining surgical intervention is not indicated he will need may need a percutaneous drainage as per surgeon of surgery cultures are pending
[2019-01-16] MEDS ORDERED: POTASSIUM PHOS IN 0.9 % NACL 15 MMOL/250 ML BAG IV ONE (12:00)
--- NOTE | 2019-01-16 15:36 | CON ---
Date of Consultation: 01/15/2019 Brief History Of Present Illness: The patient is a 38-year-old male with no significant past medical history, who presents with severe abdominal pain for 3 to 4 months. Over the last 3 to 4 weeks, got progressively worse, and over the past 2 to 3 days, it has gotten severe and as such he came to the emergency room with the above-stated complaints. Past Medical History: Negative. Past Surgical History: Negative. Allergies: NO KNOWN DRUG ALLERGIES. Medications: None. Social History: He admits to smoking and marijuana usage. He admits to alcohol usage recreationally as well. His mother had hypertension. Father had diabetes. Review of Systems: A 10-point review of systems other than HPI, denies. He has been having normal bowel function by his description. No nausea. No vomiting. Physical Examination: Vital Signs: At the time of my examination, his blood pressure was 109/65, pulse is 95, respiratory rate 18, temperature 99.6. General: He is awake, alert, and oriented. Psychiatric: Appropriate. Conversive. HEENT: Normocephalic. Sclerae icteric. Mucous membranes moist. Oropharynx clear. Neck: Supple. No JVD. Chest: Normal expansion and excursion. Cardiovascular: Regular rate, rhythm. Pulmonary: Clear to auscultation bilaterally. Abdomen: Soft with moderate global tenderness to palpation, worse in the suprapubic position. There are no peritoneal signs at this time. He is mildly distended. Extremities: No clubbing, cyanosis, or edema. Skin: Warm and dry. Laboratory Data: Reveals a white blood cell count of 11.7, hemoglobin is 14.0, hematocrit of 41.2, p latelet count is 253, neutrophils 80%. His sodium 136, potassium 3.7, chloride 101, carbon dioxide 2 8, BUN 15, creatinine 1.2, glucose is 134. Lactic acid was not checked, calcium 9.3, total bilirubin 2.5, direct component 0.8, AST 49, ALT 96, alkaline phosphatase 190, lipase 53. He had imaging performed which included a CT scan of the abdomen and pelvis, officially read as signi ficant inflammatory changes seen involving the sigmoid colon where there is an intramural thickening and inflammation, moderate inflammatory changes seen in the left inferior pelvis extending along the superior margin of the urinary bladder on the left; secondary inflammatory changes of the urinary melita dder suspected, peridiverticular abscess are present along the sigmoid colon wall superiorly measurin g 4.3 cm x 2.8 cm, and more inferiorly measuring 3.7 cm x 2.1 cm. No free air seen. No bowel obstru ction. No suspicious bony abnormalities. Bilateral fat containing inguinal hernias. Assessment And Plan: This is a 38-year-old male, who presents with complicated diverticulitis with a bscess. 1.IV fluid hydration. 2.Antibiotic coverage. 3.Pain control. 4.Serial abdominal exams. 5.I have explained the risks, benefits, and alternatives of exploratory laparotomy and resection and drainage of these abscesses should he not improve on nonoperative management. 6.We reached out to the radiologist who state that this is not amenable to percutaneous drainage at this facility; therefore, we will re-evaluate the patient should he not have resolution of his absces ses or should they change and become in a drainable position, we will consider transfer for intervent ional radiologic drainage of these abscesses to optimize and speed his recovery from this process. I have also explained that the patient needs a colonoscopy when he resolves this episode regardless of surgical intervention at that time. He agrees to proceed as indicated. Thank you for this interesting consult. ASHER/MONTSERRAT Voice ID: [id number] Report ID: [id number]
[2019-01-16] MEDS: Levofloxacin 750mg IV 750 MG/150 ML BAG IV SCH (16:56)
[2019-01-16] MEDS: ENOXAPARIN 40 MG/0.4 ML SQ SCH (16:57)
[2019-01-16] MEDS: ONDANSETRON 4 MG/2 ML VIAL IV PRN (18:58)
[2019-01-16] MEDS ORDERED: DIPHENHYDRAMINE 25 MG TAB/CAP PO ONE (20:58)
[2019-01-17] MEDS: METRONIDAZOLE 500mg IVPB 500 MG/100 ML BAG IV SCH ×4 (00:02→17:30)
[2019-01-17] MEDS: D5 0.9 NS 1,000 ML IV SCH ×5 (02:00→17:31)
[2019-01-17] MEDS: MORPHINE 2 MG/ML SYR IV PRN ×5 (03:01→15:40)
[2019-01-17 06:04] LABS: Phosphorus 2.1 mg/dL (2.5-4.9)
[2019-01-17] MEDS: INSULIN -REGULAR HUMAN 50 UNIT/0.5 ML ML SQ SCH ×4 (07:30→21:00)
[2019-01-17 08:33] LABS: Potassium 3.6 mmol/L (3.5-5.1)
[2019-01-17] MEDS ORDERED: POTASSIUM PHOS IN 0.9 % NACL 15 MMOL/250 ML BAG IV ONE (09:00)
[2019-01-17 09:26] LABS: Basophils % 0.2 % (0-1.3); Eosinophils % 1.1 % (0-4.4); Hematocrit 33.2 % (39.6-49.0); Lymphocytes % 8.6 % (15.3-44.8); MPV 8.6 fL (7.6-11.3); Monocytes % 11.4 % (3.3-12.3); RBC Red Blood Cell Count 3.59 M/uL (4.33-5.43)
[2019-01-17] MEDS ORDERED: NA CHLORIDE 0.9% 250 ML ONE (10:04)
--- NOTE | 2019-01-17 13:26 | P.PN ---
Subjective Date of Service: 01/17/19 Chief Complaint: Severe diverticulitis abdominal pain Subjective: Improving (patient ambulatory, had one episode of emesis yesterday, had loose BM today, feels much better) Physical Examination - Vital Signs Temperature: 97.6 F Blood Pressure: 133/73 Pulse: 91 Respirations: 20 Pulse Ox (%): 94 - Physical Exam General: Alert, In no apparent distress, Cooperative Gastrointestinal: Other (soft, mild abdominal pain, worse @ LLQ and suprapubic, improved from prior, no peritoneal signs) Assessment And Plan - Current Problems (Diagnosis) (1) Colonic diverticular abscess Current Visit: Yes Status: Acute Plan: - Continue REFUELING RAMP SUPERVISOR dilaudid with morphine for breakthrough pain, change interval to Q4 and will modify as needed - Single dose of Invanz, then return to levaquin and flagyl - ambulate with assist - Serial exams - IV hydration
[2019-01-17] MEDS: ONDANSETRON 4 MG/2 ML VIAL IV PRN ×2 (14:21→19:50)
[2019-01-17] MEDS: Levofloxacin 750mg IV 750 MG/150 ML BAG IV SCH (15:42)
[2019-01-17] MEDS: HYDROMORPHONE/PCA 10 MG/50 ML SYR IV PRN (16:53)
[2019-01-17] MEDS: ENOXAPARIN 40 MG/0.4 ML SQ SCH (17:30)
--- NOTE | 2019-01-17 19:28 | PN ---
Date of Progress Note: 01/17/2019 Subjective: The patient was seen and examined. Chart reviewed and case discussed with RN. The fredi ent is still complaining of some pain. Family at the bedside. Treatment plan explained, all questio ns answered. The patient asking when he can have some water. I explained that he is still currently n.p.o. due to his diverticular abscess. The patient did have loose bowel movement today. Medications: List reviewed. Physical Examination: Vital Signs: Temperature 98.8, heart rate 88, blood pressure 121/70, respirations 19. O2 89%, impro manuel to 94% on 2 L via nasal cannula. General: Awake, alert, oriented x3. Ill-appearing male, obese. CV: S1, S2. Regular rate and rhythm. Peripheral pulses present. Respiratory: Moving air well bilaterally. No wheezing. Gastrointestinal: Abdomen is soft. Tenderness to palpation in the left lower quadrant. No rebound or guarding. Bowel sounds positive. Extremities: No clubbing, cyanosis, or edema. Neuro: Cranial nerves 2 through 12 intact grossly. No focal neurological deficit. Skin: No rashes. Normal skin turgor. Laboratory Data: Sodium 137, potassium 3.6, chloride 103, CO2 28, BUN 8, creatinine 1, glucose 102, calcium 8.2. WBC 11.7, H and H 11.3 and 33.2, platelets 233. Neutrophils 78%. Blood cultures show no growth to date. Assessment: A 38-year-old male with: 1.Acute diverticulitis with abscess in the sigmoid colon. Continue with IV antibiotics. Appreciate Dr. Sheriff's input. He does not recommend any surgical intervention at this time. The patient is improving. Did have loose bowel movement today without any bleeding. We will continue to monitor. Keep n.p.o. Continue with IV fluids. 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 2.Overweight, BMI 29.5. Counseled. 3.Fatty liver disease. Plan: Continue current treatment, likely discharge in the next 48 to 72 hours depending on clinical response. /MONTSERRAT Voice ID: [id number] Report ID: [id number]
--- NOTE | 2019-01-17 20:03 | RAD REPORT ---
EXAM DESCRIPTION: Eliel Single View01/17/2019 7:41 pm CLINICAL HISTORY: sob COMPARISON: April 2018 FINDINGS: The lungs appear clear of acute infiltrate. The heart is normal size IMPRESSION: No acute abnormalities displayed
[2019-01-17] MEDS ORDERED: ACETAMINOPHEN 500 MG TAB PO ONE (20:18)
[2019-01-17] MEDS ORDERED: DIPHENHYDRAMINE 25 MG TAB/CAP PO PRN (21:00)
[2019-01-17] MEDS ORDERED: KETOROLAC 30 MG/ML INJ IV PRN (21:51)
[2019-01-17] MEDS ORDERED: TRAMADOL HCL 50 MG TAB PO PRN (21:51)
--- NOTE | 2019-01-17 22:00 | P.PN ---
Date of Service: 01/17/19 Code stroke was called, because the patient become more lethargic, complaining of lower extremity weakness. At my examination, the patient was pale, bradypneic , BP 128/80, with slurred speech. He was on PAPER CUTTER OPERATOR dilaudid, PRN morphine. After receive Narcan 0.4 mg, he become more awake and alert, he was able to move his lower extremities. I Have held his opioid medication for tonight, start toradol and tramadol. Will follow up symptoms progress.
[2019-01-18] MEDS: METRONIDAZOLE 500mg IVPB 500 MG/100 ML BAG IV SCH ×5 (00:30→23:52)
[2019-01-18 04:58] LABS: Absolute Lymphocytes (CBC) 0.9 K/uL (0.7-4.9); Basophils % 0.4 % (0-1.3); Eosinophils % 1.2 % (0-4.4); Hematocrit 33.3 % (39.6-49.0); Lymphocytes % 7.5 % (15.3-44.8); MPV 8.4 fL (7.6-11.3); Monocytes % 11.2 % (3.3-12.3)
[2019-01-18 05:04] LABS: Magnesium 2.2 mg/dL (1.8-2.4); Phosphorus 2.1 mg/dL (2.5-4.9); Potassium 3.8 mmol/L (3.5-5.1)
[2019-01-18] MEDS: D5 0.9 NS 1,000 ML IV SCH ×4 (05:21→21:57)
[2019-01-18] MEDS ORDERED: POTASSIUM PHOS IN 0.9 % NACL 15 MMOL/250 ML BAG IV ONE (05:31)
--- NOTE | 2019-01-18 07:24 | P.PN ---
Subjective Date of Service: 01/18/19 Chief Complaint: Severe diverticulitis abdominal pain Subjective: Improving (Patient had episode of bilateral leg numbness after sitting on toilet for extended time last evening, otherwise feeling well) Physical Examination - Vital Signs Temperature: 99.1 F Blood Pressure: 96/58 Pulse: 82 Respirations: 18 Pulse Ox (%): 94 - Physical Exam General: Alert, In no apparent distress, Cooperative Gastrointestinal: Other (soft, mild LLQ. Suprapubic ttp, mild distention, improved from last exam) Assessment And Plan - Current Problems (Diagnosis) (1) Colonic diverticular abscess Current Visit: Yes Status: Acute Plan: - Continue morphine for pain, change interval to Q4 and will transition to PO - start clears today - Single dose of Invanz, then return to levaquin and flagyl - ambulate with assist - Serial exams - IV hydration
[2019-01-18] MEDS: INSULIN -REGULAR HUMAN 50 UNIT/0.5 ML ML SQ SCH ×4 (07:30→21:00)
--- NOTE | 2019-01-18 15:01 | PN ---
Date of Progress Note: 01/18/2019 Subjective: The patient seen and examined. Chart reviewed and case discussed with RN and Dr. Smitha miller. The patient states his pain is better, able to tolerate clear liquids. Medications: List reviewed. Physical Examination: Vital Signs: Temperature 97.2, heart rate 76, blood pressure 138/71, respirations 16, O2 92% on 2 L via nasal cannula. General: Awake, alert, oriented x3. No acute distress. Obese male. CV: S1 and S2. No murmurs. Respiratory: Moving air well bilaterally except at the bases. No wheezing or stridor. Gastrointestinal: Abdomen is soft. Mild tenderness to palpation in the epigastric region and the le ft lower quadrant. No rebound or guarding. Positive bowel sounds. Extremities: No clubbing, cyanosis, or edema. Neurologic: Nonfocal. Laboratory Data: Sodium 142, potassium 3.8, chloride 106, CO2 30, BUN 7, creatinine 0.95, glucose 12 2, calcium 8.3, phosphorus 2.1, magnesium 2.2. WBC 11.7, H and H 11.2 and 33.3, platelets 269, neutr ophils 79.7%. Blood culture show no growth. Gram stain from 1 bottle shows gram-positive rods. ID and sensitivity pending. Assessment And Plan: A 38-year-old male with: 1.Acute diverticulitis with abscess, sigmoid colon. Continue IV antibiotics. The patient is starte d on clear liquids, tolerating them well. Pain is improved. We will switch over to oral analgesics. 2.Fatty liver disease. 3.Hypophosphatemia. We will replace and monitor. 4.Overweight, BMI 29.5. 5.Numbness and tingling of the lower extremity. Code stroke was called last night. The patient has been on Dilaudid COSTUMING SUPERVISOR and IV morphine. The patient had this numbness and tingling after sitting on t he toilet seat for a long period of time. Symptoms have resolved. Plan: Adjust pain medications. Discontinue morphine and Dilaudid COSTUMING SUPERVISOR. Switched to oral analgesics. Physical therapy ambulate patient. Advance diet in a.m. to full liquids. Likely discharge in the next 24 to 48 hours depending on clinical response. /YAJAIRAL Voice ID: [id number] Report ID: [id number]
[2019-01-18] MEDS: MORPHINE 2 MG/ML SYR IV PRN (15:53)
[2019-01-18] MEDS: Levofloxacin 750mg IV 750 MG/150 ML BAG IV SCH (15:53)
[2019-01-18] MEDS: ENOXAPARIN 40 MG/0.4 ML SQ SCH (17:34)
[2019-01-18] MEDS: HYDROCODONE/APAP 5/325 MG TAB PO PRN (18:55)
[2019-01-19 05:58] LABS: Absolute Lymphocytes (CBC) 1.8 K/uL (0.7-4.9); Basophils % 0.3 % (0-1.3); Eosinophils % 1.4 % (0-4.4); Hematocrit 34.6 % (39.6-49.0); Lymphocytes % 13.6 % (15.3-44.8); MPV 8.5 fL (7.6-11.3); Monocytes % 9.8 % (3.3-12.3); RBC Red Blood Cell Count 3.78 M/uL (4.33-5.43)
[2019-01-19 06:14] LABS: Magnesium 2.1 mg/dL (1.8-2.4); Phosphorus 3.2 mg/dL (2.5-4.9); Potassium 3.4 mmol/L (3.5-5.1)
[2019-01-19] MEDS: METRONIDAZOLE 500mg IVPB 500 MG/100 ML BAG IV SCH ×4 (06:30→23:11)
[2019-01-19] MEDS: D5 0.9 NS 1,000 ML IV SCH ×2 (06:30→15:17)
[2019-01-19] MEDS: INSULIN -REGULAR HUMAN 50 UNIT/0.5 ML ML SQ SCH ×4 (07:30→21:00)
[2019-01-19] MEDS: ONDANSETRON 4 MG/2 ML VIAL IV PRN (07:39)
[2019-01-19] MEDS: MORPHINE 2 MG/ML SYR IV PRN ×4 (07:40→21:02)
[2019-01-19] MEDS ORDERED: ERTAPENEM SODIUM 1 GM VIAL IVPB ONE (09:44)
[2019-01-19] MEDS ORDERED: ERTAPENEM NA 1 GM in NA CHLORIDE 0.9% 100 ML IVPB ONE (10:00)
[2019-01-19] MEDS: Levofloxacin 750mg IV 750 MG/150 ML BAG IV SCH (15:33)
[2019-01-19] MEDS: HYDROCODONE/APAP 5/325 MG TAB PO PRN ×2 (16:28→23:11)
[2019-01-19] MEDS: ENOXAPARIN 40 MG/0.4 ML SQ SCH (17:00)
--- NOTE | 2019-01-19 20:36 | PN ---
Date of Progress Note: 01/19/2019 Subjective: The patient seen and examined. Chart reviewed and case discussed with RN and Dr. Smitha miller. The patient states the pain is better. He did have episode of emesis this morning before breakfa st. Did have a temperature of 100.9. Medications: List reviewed. Physical Examination: Vital Signs: Temperature 100.9, heart rate 75, blood pressure 107/57, respirations 18, O2 93% on eric m air. General: Awake, alert, oriented x3, in some mild distress. Obese male. CV: S1, S2. Regular rate and rhythm. Peripheral pulses present. Respiratory: Moving air well bilaterally. No wheezing or stridor. Gastrointestinal: Abdomen is soft. Tenderness to palpation, mild. There is mild distention as well . No rebound or guarding. Bowel sounds are hypoactive. Extremities: No clubbing, cyanosis, or edema. Neurologic: Nonfocal. Laboratory Data: Sodium 141, potassium 3.4, chloride 106, CO2 30, BUN 8, creatinine 1.04, glucose 10 9, calcium 8.4, phosphorus 3.2, magnesium 2.1. WBC 13, H and H 12.1 and 34.6, platelets 338, neutrop hils 74%. Blood cultures, no growth to date. Assessment And Plan: A 38-year-old male with: 1.Acute diverticulitis with abscess of the sigmoid colon. We will continue with IV antibiotics. Wh ite count is increasing. We will adjust IV antibiotics. We will continue pain medications. The pat ient may need to have repeat CT scan if not improving. 2.Hypophosphatemia, replace and monitor. 3.Fatty liver disease, counseled. 4.Overweight, BMI 29.5. 5.Normocytic normochromic anemia. H and H are stable. 6.Hypokalemia, replace and monitor. Disposition: Likely discharge in the next 24-48 hours depending on clinical response. SA/MODL Voice ID: [id number] Report ID: [id number]
[2019-01-20] MEDS: D5 0.9 NS 1,000 ML IV SCH ×3 (00:42→08:38)
[2019-01-20] MEDS: METRONIDAZOLE 500mg IVPB 500 MG/100 ML BAG IV SCH (05:19)
[2019-01-20] MEDS: HYDROCODONE/APAP 5/325 MG TAB PO PRN ×2 (05:19→11:17)
[2019-01-20 06:27] LABS: Basophils % 0.5 % (0-1.3); Eosinophils % 0.3 % (0-4.4); Hematocrit 31.5 % (39.6-49.0); Lymphocytes % 7.2 % (15.3-44.8); MPV 8.5 fL (7.6-11.3); Monocytes % 11.2 % (3.3-12.3); RBC Red Blood Cell Count 3.49 M/uL (4.33-5.43)
[2019-01-20 06:33] LABS: BUN Blood Urea Nitrogen 6 mg/dL (7-18); Bicarbonate 27 mmol/L (21-32); Glucose Level 118 mg/dL (74-106); Magnesium 1.9 mg/dL (1.8-2.4); Phosphorus 2.4 mg/dL (2.5-4.9); Potassium 3.3 mmol/L (3.5-5.1); Sodium Level 140 mmol/L (136-145)
[2019-01-20] MEDS: INSULIN -REGULAR HUMAN 50 UNIT/0.5 ML ML SQ SCH ×2 (07:30→11:30)
[2019-01-20] MEDS: POTASS/SODIUM PHOSPHATE 1 PKT POWD.PACK PO SCH ×3 (08:34→09:49)
--- NOTE | 2019-01-20 08:35 | P.PN ---
Subjective Date of Service: 01/20/19 Chief Complaint: Severe diverticulitis abdominal pain Subjective: Improving (Patient tolerating diet, pain resolved completely with po pain meds, has minimal 2-3 pain at worst he states, no nausea, no emesis, having bowel movements) Physical Examination - Vital Signs Temperature: 98.9 F Blood Pressure: 135/76 Pulse: 76 Respirations: 18 Pulse Ox (%): 95 - Physical Exam General: Alert, In no apparent distress, Cooperative Gastrointestinal: Soft and benign, Non-distended, No ascites, No masses, No rebound, No guarding, Other (minimal tenderness to deep palpation @ LLQ.) Assessment And Plan - Current Problems (Diagnosis) (1) Colonic diverticular abscess Current Visit: Yes Status: Acute Plan: - doing well with PO pain meds - advance diet, low residue diet recommended, PO ensure supplement - DC home on levaquin and flagyl - follow up in 2 weeks in clinic - ambulate with assist - Serial exams - IV hydration
--- NOTE | 2019-01-21 08:29 | DS ---
Date of Discharge: 01/20/2019 Procedures: None. Admitting Diagnosis: Acute diverticulitis with abscess. Discharge Diagnoses: 1.Acute diverticulitis with abscess of the sigmoid colon, improving. 2.Hypophosphatemia, replaced. 3.Hypokalemia, replaced. 4.Fatty liver disease, counseled. 5.Overweight, body mass index 39.5. 6.Normocytic normochromic anemia. Hospital Course: The patient is a 38-year-old male who has been having severe abdominal pain for the past 3 to 4 months, found to have severe diverticulitis of the sigmoid colon with abscess on CT scan . The patient was started on IV antibiotics. Dr. Sheriff with General Surgery was consulted. The p atient did well with conservative treatment. His WBC count improved; however, continued to linger ar ound 13. Clinically, improved significantly. He was able to tolerate his diet. His pain resolved. He did have a couple of episodes of diarrhea and his electrolytes were replaced including potassium and phosphorus. The patient did well overall. He was afebrile. There were no signs of sepsis. He did have some low-grade temperatures. Overall, doing well. Blood cultures did not show any growth. He was tolerating his diet. The patient was cleared for discharge from surgical standpoint. The pa tonia understands he will need to continue on antibiotics for a total of 2 weeks, and then follow up with surgeon. He also needs a colonoscopy in the next 6 to 8 weeks once his acute infection has reso lved. Diet: Low residue diet. Supplement with Ensure and Gatorade. Activities: No lifting over 10 pounds. No driving or operating heavy machinery while on narcotics. Medications: As per medication reconciliation list. Followup: Follow up with PCP in 2-3 days. Follow up with surgeon in 2 weeks. Physical Examination: General: Awake, alert, oriented x3, not in any acute distress. CV: S1, S2. No murmurs. Respiratory: Moving air well bilaterally. Abdomen: Soft, nontender, nondistended. Positive bowel sounds. Extremities: No clubbing, cyanosis, or edema. Neuro: Nonfocal. Time Spent: Total time spent discharging the patient was 37 minutes. /MONTSERRAT Voice ID: [id number] Report ID: [id number]
== END 2019-01-20 12:33 | disposition home or self-care (01) | DRG 392 ==
LOC: ER 11:53 → SUPCPDRO 11:53 → ERHOLD 15:23 → 4TH 16:19
PROVIDERS: ADMIT Internal Medicine Sleep Medicine; ATTEND Family Medicine
DX: K57.20 Diverticulitis of large intestine with perforation and abscess without bleeding (principal); F17.210 Nicotine dependence, cigarettes, uncomplicated; K76.0 Fatty (change of) liver, not elsewhere classified; E66.3 Overweight; E83.39 Other disorders of phosphorus metabolism; R20.0 Anesthesia of skin; R20.2 Paresthesia of skin; E87.6 Hypokalemia; D64.9 Anemia, unspecified; Z68.29 Body mass index [BMI] 29.0-29.9, adult
CPT/HCPCS: 36415; 71045; 74177; 80048; 80076; 81003; 81015; 82962; 83605; 83690; 83735; 84100; 85025; 86850; 86900; 86901; 87040; 87205; 94760; 99285; J1170; J1335; J1650; J2270; J2310; J2405; J3010; J7030; Q9967

== ENCOUNTER 2020-12-08 15:00 | Emergency (ER) | payer SELFPAY ==
[2020-12-08] MEDS ORDERED: KETOROLAC 30 MG/ML INJ ONE (16:06)
[2020-12-08] MEDS ORDERED: HYDROCODONE/APAP 10/325 TAB ONE (16:06)
[2020-12-08] MEDS ORDERED: dexAMETHasone 10 MG/ML VIAL ONE (16:06)
--- NOTE | 2020-12-08 16:22 | RAD REPORT ---
EXAM DESCRIPTION: RAD - Foot Left 3 View - 12/08/2020 4:08 pm CLINICAL HISTORY: Left Foot pain FINDINGS: No fracture or dislocation is seen. No bone or joint abnormality noted. Soft tissue swelling seen
--- NOTE | 2020-12-08 16:28 | EDPHYS ---
Physician Documentation [facility] Name: Gen Cast Age: 40 yrs Sex: Male : 1980 Arrival Date: 12/08/2020 Time: 15:01 Bed 17 Private MD: ED Physician Jose Guadalupe Santos HPI: 12/08 15:29 This 40 yrs old Male presents to ER via Wheelchair with complaints of Toe Pain pm1 -Swelling. 15:29 Onset: The symptoms/episode began/occurred 2 day(s) ago. Associated signs and symptoms: pm1 Pertinent negatives: fever, calf pain and swelling. Modifying factors: the patient symptoms are aggravated by weight bearing and bending great L toe. The patient presents with pain, that is acute, swelling. The complaints affect the left foot. Context: The problem was sustained at an unknown location, resulted from an unknown cause, the patient can fully bear weight, the patient is able to ambulate. Severity of symptoms: in the emergency department the symptoms are unchanged. The patient has not experienced similar symptoms in the past. The patient has not recently seen a physician. Patient ate about 2 pounds of shrimp and drank alcohol prior to onset of symptoms. Historical: - Allergies: 15:17 NKA; ca1 - Home Meds: 15:17 None [Active]; ca1 - PMHx: 15:17 None; ca1 - PSHx: 15:17 None; ca1 - Immunization history:: Client reports having NOT received the Covid vaccine. Flu vaccine is not up to date. - Social history:: Smoking status: Patient reports the use of cigarette tobacco products, smokes one pack cigarettes per day. ROS: 15:29 MS/extremity: Positive for pain, swelling, tenderness, of the MTP of left first toe. pm1 15:29 Constitutional: Negative for fever, chills, and weight loss, Cardiovascular: Negative for chest pain, palpitations, and edema, Respiratory: Negative for shortness of breath, cough, wheezing, and pleuritic chest pain, Abdomen/GI: Negative for abdominal pain, nausea, vomiting, diarrhea, and constipation, Back: Negative for injury and pain, Skin: Negative for injury, rash, and discoloration, Neuro: Negative for headache, weakness, numbness, tingling, and seizure. 15:29 All other systems are negative. Exam: 15:29 Constitutional: This is a well developed, well nourished patient who is awake, alert, pm1 and in no acute distress. Head/Face: Normocephalic, atraumatic. 15:29 Skin: Warm, dry with normal turgor. Normal color with no rashes, no lesions, and no evidence of cellulitis. 15:29 Eyes: Exam is negative for acute changes, Conjunctiva: normal, no injection, Lids and lashes: appear normal. 15:29 ENT: Mouth: Lips: normal, Oral mucosa: normal, pink and intact, moist. 15:29 Cardiovascular: Exam negative for acute changes, Rate: normal, Rhythm: regular, Pulses: no pulse deficits are appreciated, Edema: is not appreciated. 15:29 Respiratory: Exam negative for acute changes, respiratory distress, shortness of breath. 15:29 Musculoskeletal/extremity: Extremities: grossly normal except: noted in the MTP left first toe: swelling, tenderness, ROM: intact in all extremities, Circulation is intact in all extremities. 15:29 Neuro: Exam negative for acute changes, Orientation: is normal, Mentation: is normal, Motor: is normal, moves all fours. Vital Signs: 15:15 BP 118 / 78; Pulse 70; Resp 16 S; Temp 98.1(TE); Pulse Ox 97% on R/A; Weight 83.01 kg; ca1 Height 5 ft. 6 in. (167.64 cm) (R); Pain 9/10; 16:20 BP 123 / 75; Pulse 68; Resp 17; Pulse Ox 99% ; rb3 15:15 Body Mass Index 29.54 (83.01 kg, 167.64 cm) ca1 MDM: 15:23 Patient medically screened. pm1 16:27 Data reviewed: vital signs. Data interpreted: Pulse oximetry: on room air is 97 %. pm1 Interpretation: normal. Counseling: I had a detailed discussion with the patient and/or guardian regarding: the historical points, exam findings, and any diagnostic results supporting the discharge/admit diagnosis, radiology results, the need for outpatient follow up, to return to the emergency department if symptoms worsen or persist or if there are any questions or concerns that arise at home. 16:29 ED course: POLYTECHNIC REGISTRAR aware reviewed. No results found. pm1 16:32 ED course: patient requested to go home with crutches. pm1 12/08 15:29 Order name: Foot Left 3 View XRAY; Complete Time: 16:27 pm1 12/08 16:32 Order name: Crutches; Complete Time: 16:38 pm1 Administered Medications: 15:50 Drug: Decadron (dexamethasone) 10 mg Route: IM; Site: right gluteus; rb3 16:20 Follow up: Response: No adverse reaction rb3 15:50 Drug: [place] (HYDROcodone-acetaminophen) 10 mg-325 mg 1 tabs Route: PO; rb3 16:30 Follow up: Response: No adverse reaction; Pain is decreased rb3 15:50 Drug: TORadol (ketorolac) 60 mg Route: IM; Site: left gluteus; rb3 16:30 Follow up: Response: No adverse reaction rb3 Disposition: 12/08/20 16:28 Discharged to Home. Impression: Pain in left foot, Gout. - Condition is Stable. - Discharge Instructions: Crutch Use, Gout, Foot Pain. - Prescriptions for Tylenol- Codeine #3 300-30 mg Oral Tablet - take 2 tablets by ORAL route every 6 hours As needed; 20 tablet. Medrol (Kenn) 4 mg Oral Tablets, Dose Pack - take 1 tablet by ORAL route as directed - follow package instructions; 1 packet. - Medication Reconciliation Form, Thank You Letter, Antibiotic Education, Prescription Opioid Use form. - Follow up: Emergency Department; When: As needed; Reason: Worsening of condition. Follow up: Private Physician; When: 2 - 3 days; Reason: Recheck today's complaints, Continuance of care, Re-evaluation by your physician. - Problem is new. - Symptoms have improved. Addendum: 12/10/2020 07:15 Co-signature as Attending Physician, Jose Guadalupe Santos MD I agree with the assessment and c kaur plan of care. Signatures: Dispatcher [employer] EDVT Jose Guadalupe Santos MD MD cha Marinas, Patrick, JHONY SUPERVISOR NETWORK CONTROL OPERATORS pm1 Blank Cordoba RN RN ca1 Barber, Rebecca, RN RN rb3 Corrections: (The following items were deleted from the chart) 12/08 16:44 16:28 12/08/2020 16:28 Discharged to Home. Impression: Pain in left footGout. Condition rb3 is Stable. Forms are Medication Reconciliation Form, Thank You Letter, Antibiotic Education, Prescription Opioid Use. Follow up: Emergency Department; When: As needed; Reason: Worsening of condition. Follow up: Private Physician; When: 2 - 3 days; Reason: Recheck today's complaints, Continuance of care, Re-evaluation by your physician. Problem is new. Symptoms have improved. pm1
--- NOTE | 2020-12-08 16:28 | ER ---
Nurse's Notes [facility] Name: Gen Cast Age: 40 yrs Sex: Male : 1980 Arrival Date: 12/08/2020 Time: 15:01 Bed 17 Private MD: Diagnosis: Gout;Pain in left foot Presentation: 12/08 15:15 Chief complaint: Patient states: L foot pain, swelling, redness x 2 days. Pain radiates ca1 up to L knee. Denies injury. Unable to determine what caused it. Coronavirus screen: Client denies travel out of the [place] in the last 14 days. At this time, the client does not indicate any symptoms associated with coronavirus-19. Ebola Screen: Patient negative for fever greater than or equal to 101.5 degrees Fahrenheit, and additional compatible Ebola Virus Disease symptoms Patient denies exposure to infectious person. Patient denies travel to an Ebola-affected area in the 21 days before illness onset. No symptoms or risks identified at this time. Initial Sepsis Screen: Does the patient meet any 2 criteria? No. Patient's initial sepsis screen is negative. Does the patient have a suspected source of infection? No. Patient's initial sepsis screen is negative. Risk Assessment: Do you want to hurt yourself or someone else? Patient reports no desire to harm self or others. 15:15 Method Of Arrival: Wheelchair ca1 15:15 Acuity: DONN 3 ca1 Historical: - Allergies: 15:17 NKA; ca1 - Home Meds: 15:17 None [Active]; ca1 - PMHx: 15:17 None; ca1 - PSHx: 15:17 None; ca1 - Immunization history:: Client reports having NOT received the Covid vaccine. Flu vaccine is not up to date. - Social history:: Smoking status: Patient reports the use of cigarette tobacco products, smokes one pack cigarettes per day. Screenin:20 Abuse screen: Denies threats or abuse. Nutritional screening: No deficits noted. rb3 Tuberculosis screening: No symptoms or risk factors identified. Fall Risk None identified. Assessment: 15:20 General: Appears uncomfortable, Behavior is calm, cooperative, Reports fever for off rb3 and on. Pain: Complains of pain in left first toe Pain currently is 9 out of 10 on a pain scale. Pain began x 2 days. Neuro: Level of Consciousness is awake, alert, obeys commands, Oriented to person, place, time, situation. Cardiovascular: Patient's skin is warm and dry. Respiratory: Airway is patent Respiratory effort is even, unlabored, Respiratory pattern is regular, symmetrical. GI: Reports diarrhea, nausea, vomiting, since x 1 day. : No signs and/or symptoms were reported regarding the genitourinary system. Musculoskeletal: Swelling present in left first toe Redness noted to the left foot. 15:20 Pain: Aggravated by weight bearing. rb3 16:20 Reassessment: Patient appears in no apparent distress at this time. Patient and/or rb3 family updated on plan of care and expected duration. Pain level reassessed. Patient is alert, oriented x 3, equal unlabored respirations, skin warm/dry/pink. Vital Signs: 15:15 BP 118 / 78; Pulse 70; Resp 16 S; Temp 98.1(TE); Pulse Ox 97% on R/A; Weight 83.01 kg; ca1 Height 5 ft. 6 in. (167.64 cm) (R); Pain 9/10; 16:20 BP 123 / 75; Pulse 68; Resp 17; Pulse Ox 99% ; rb3 15:15 Body Mass Index 29.54 (83.01 kg, 167.64 cm) ca1 ED Course: 15:01 Patient arrived in ED. ds1 15:17 Triage completed. ca1 15:17 Arm band placed on right wrist. ca1 15:20 Patient has correct armband on for positive identification. Bed in low position. Call rb3 light in reach. Side rails up X 1. Pulse ox on. NIBP on. 15:22 Mega Guzman NP is PHCP. pm1 15:22 Jose Guadalupe Santos MD is Attending Physician. pm1 15:25 Francie Sherwood, KATH is Primary Nurse. rb3 16:08 Foot Left 3 View XRAY In Process Unspecified. EDMS 16:38 Crutch training done. mh5 16:44 No provider procedures requiring assistance completed. Patient did not have IV access rb3 during this emergency room visit. Administered Medications: 15:50 Drug: Decadron (dexamethasone) 10 mg Route: IM; Site: right gluteus; rb3 16:20 Follow up: Response: No adverse reaction rb3 15:50 Drug: [place] (HYDROcodone-acetaminophen) 10 mg-325 mg 1 tabs Route: PO; rb3 16:30 Follow up: Response: No adverse reaction; Pain is decreased rb3 15:50 Drug: TORadol (ketorolac) 60 mg Route: IM; Site: left gluteus; rb3 16:30 Follow up: Response: No adverse reaction rb3 Outcome: 16:28 Discharge ordered by MD. pm1 16:44 Discharged to home via wheelchair, with family. rb3 16:44 Condition: stable 16:44 Discharge instructions given to patient, Instructed on discharge instructions, follow up and referral plans. medication usage, Demonstrated understanding of instructions, follow-up care, medications, Prescriptions given X 2. 16:44 Patient left the ED. rb3 Signatures: Dispatcher [employer] EDAL Sadia Dubose ds1 Mega Guzman, JHONY EQUIPMENT OPERATOR WAREHOUSE pm1 Stephanie Jack 5 Blank Cordoba RN RN ca1 Francie Sherwood RN RN rb3
[2020-12-08 16:52] VITALS: TEMP 98.1
[2020-12-08 16:53] VITALS: BP 123/75; O2SAT 99
== END 2020-12-08 16:44 | disposition home or self-care (01) ==
LOC: ER 15:00
DX: M10.072 Idiopathic gout, left ankle and foot (principal); F17.210 Nicotine dependence, cigarettes, uncomplicated
CPT/HCPCS: 96372; 99284; J1100

== ENCOUNTER 2022-06-02 10:56 | Emergency (ER) | payer SELFPAY ==
--- OUTSIDE RECORDS SUMMARY | 2022-06-02 12:01 | XMS REPORT | Continuity of Care Document ---
:1980 Author Organization [facility] t Address [address] [place] [address] [address]. [address] [place] [address] Care Team Providers Name Role Phone PCP, PATIENT DOES NOT HAVE A Primary Care Physician Unavaila ble VIELKA LOZADA Attending Clinician Unavailable Vielka Lozada DO Attending Clinician Problems Condition Condition Condition Status Onset Resolution Last Treating Co mments Source Name Details Category Date Date Treatment Clinician Date No known No known Disease Unive rs active active ity of problems problems [facility] Allergies, Adverse Reactions, Alerts Allergy Allergy Status Severity Reaction(s) Onset Inactive Treating Comm ents Source Name Type Date Date Clinician NO KNOWN Drug Active Univers ALLERGIE Class ity of [facility] Social History Social Habit Start Date Stop Date Quantity Comments Source Sex Assigned At [birth year] [facility] 00:00:00 00:00:00 Medical [place] Smoking Status Start Date Stop Date Source Tobacco smoking [facility] Medications Ordered Filled Start Stop Current Ordering Indication Dosage Frequency Signature Comments Components Source Medication Medication Date Date Medication? Clinician (SIG) Name Name No known 2021-07 No No known Unive rs medications 0-25 medication it y of 11:51: s [address] Vital Signs Vital Name Observation Time Observation Value Comments Source Systolic blood 2022-05-06 16:45:00 122 mm[Hg] Univer sity of pressure [facility] Diastolic blood 2022-05-06 16:45:00 92 mm[Hg] Unive rsity of [facility] Heart rate 2022-05-06 16:45:00 62 /min [facility] Body temperature 2022-05-06 16:45:00 36.11 Vianca [facility] Respiratory rate 2022-05-06 16:45:00 19 /min [facility] Body height 2022-05-06 16:45:00 165.1 cm [facility] Body weight 2022-05-06 16:45:00 83.915 kg [facility] BMI 2022-05-06 16:45:00 30.79 kg/m2 [facility] Oxygen saturation in 2022-05-06 16:45:00 98 /min [facility] Arterial blood by [facility] Pulse oximetry Branch Procedures Procedure Date / Time Performed Performing Clinician Sour e NOTICE OF PRIVACY 2022-05-06 16:40:23 Doctor Unassigned, No [facility] PRACTICES Name [facility] CONSENT/REFUSAL FOR 2022-05-06 16:39:54 Doctor Unassigned, No [facility] DIAGNOSIS AND Name Medical Branch TREATMENT Encounters Start End Encounter Admission Attending Care Care Encounter Source Date/Time Date/Time Type Type Clinicians Facility Department ID 2022-05-06 2022-05-06 Emergency X KIERRA SCBRIANNA ERT [id number] [facility] 11:47:00 12:21:00 VIELKA waters [facility] 2022-05-06 2022-05-06 Emergency Kierra [facility] [id number] [facility] 11:47:00 12:21:00 [facility]iel[id number] [id number] [facility] 084 Branch Results This patient has no known results.
[2022-06-02] MEDS ORDERED: COLCHICINE 0.6 MG TAB ONE (12:46)
--- NOTE | 2022-06-02 13:46 | ER ---
Nurse's Notes [facility] Name: Gen Cast Age: 42 yrs Sex: Male : 1980 Arrival Date: 06/02/2022 Time: 10:59 Bed 11 Private MD: Diagnosis: Gout, unspecified;Pain in left knee;Elevated blood-pressure reading, without diagnosis of hypertension Presentation: 06/02 11:48 Chief complaint: Patient states: I woke up like this at 3am, I cant bend my left knee jh5 but the pain is shooting up left hip. Coronavirus screen: Vaccine status: Patient reports receiving the 2nd dose of the covid vaccine. Client denies travel out of the [place] in the last 14 days. Ebola Screen: Patient negative for fever greater than or equal to 101.5 degrees Fahrenheit, and additional compatible Ebola Virus Disease symptoms Patient denies exposure to infectious person. Patient denies travel to an Ebola-affected area in the 21 days before illness onset. Initial Sepsis Screen: Does the patient meet any 2 criteria? No. Patient's initial sepsis screen is negative. Does the patient have a suspected source of infection? No. Patient's initial sepsis screen is negative. Risk Assessment: Do you want to hurt yourself or someone else? Patient reports no desire to harm self or others. 11:48 Method Of Arrival: Ambulatory [facility] 11:48 Acuity: DONN 4 jh5 14:17 Onset of symptoms was June 02, 2022 at 03:00. kb3 Triage Assessment: 11:52 General: Appears in no apparent distress. uncomfortable, Behavior is calm, cooperative, jh5 appropriate for age. Pain: Complains of pain in left leg. Historical: - Allergies: 11:52 NKA; jh5 - Immunization history:: Adult Immunizations up to date. - Social history:: Smoking status: Patient reports the use of cigarette tobacco products, smokes one pack cigarettes per day. Screenin:30 Abuse screen: Denies threats or abuse. Denies injuries from another. Nutritional kb3 screening: No deficits noted. Tuberculosis screening: No symptoms or risk factors identified. Fall Risk None identified. Assessment: 12:30 General: Appears in no apparent distress. uncomfortable, Behavior is calm, cooperative, kb3 Pt reports he woke up at 0300 with severe left rupinder-patellar knee pain. Denies redness or swelling. Reports no history of gout but has had similar symptoms in left ankle in the past. 12:30 Pain: Complains of pain in lateral aspect of left knee, posterior aspect of left knee, kb3 medial aspect of left knee and left knee Pain does not radiate. Pain currently is 10 out of 10 on a pain scale. Quality of pain is described as sharp, shooting, throbbing, Pain began 0300 today Is continuous. Musculoskeletal: Capillary refill < 3 seconds, Tenderness present in left knee. Vital Signs: 11:48 BP 140 / 96; Pulse 77; Resp 18; Temp 98.6; Pulse Ox 100% ; Weight 83.91 kg; Height 5 jh5 ft. 5 in. (165.10 cm); Pain 6/10; 14:16 BP 138 / 88; Pulse 71; Resp 18; Pulse Ox 99% ; Pain 3/10; kb3 11:48 Body Mass Index 30.78 (83.91 kg, 165.10 cm) [facility] ED Course: 10:59 Patient arrived in ED. rg4 11:03 Samira Alonzo FNP-C [facility] snw 11:03 Kedar Queen MD is Attending Physician. snw 11:48 Arm band placed on right wrist. 5 11:52 Triage completed. [facility] 12:01 Kala Gold, RN is Primary Nurse. kb3 12:30 Patient has correct armband on for positive identification. Bed in low position. Call [facility] light in reach. Side rails up X2. Warm blanket given. 12:30 Assist provider with bone marrow aspiration. Patient did not have IV access during this 3 emergency room visit. Administered Medications: 12:57 Drug: Colcrys (colchicine) 1.2 mg Route: PO; kb3 14:00 Follow up: Response: (VIS) Vaccine information sheet provided today. Questions and/or 3 concerns addressed. VIS edition date: Feb 15, 2021.; Pain is decreased Medication: 12:30 VIS not applicable for this client. 3 Outcome: 13:45 Discharge ordered by . snw 14:16 Discharged to home ambulatory, with crutches, with family. kb3 14:16 Condition: stable 14:16 Discharge instructions given to patient, Instructed on discharge instructions, follow up and referral plans. medication usage, crutch walking, Demonstrated understanding of instructions, follow-up care, medications, crutch walking, Prescriptions given X 2. 14:17 Patient left the ED. kb3 Signatures: Samira Alonzo FNP-C HAMMER RUNNER-Sherly Marroquin rg4 Yary Moon, RN RN jh5 Kala Gold RN RN kb3 Corrections: (The following items were deleted from the chart) 11:52 11:48 Pulse 77bpm; Resp 18bpm; Pulse Ox 100%; Temp 98.6F; 83.91 kg; Height 5 ft. 5 in.; jh5 BMI: 30.7; Pain 6/10; jh5
--- NOTE | 2022-06-02 13:47 | EDPHYS ---
Physician Documentation [facility] Name: Gen Cast Age: 42 yrs Sex: Male : 1980 Arrival Date: 06/02/2022 Time: 10:59 Bed 11 Private MD: ED Physician Kedar Queen HPI: 06/02 13:13 This 42 yrs old Male presents to ER via Ambulatory with complaints of Knee snw Pain. 13:13 The patient presents with decreased range of motion, pain. The complaints affect the snw left knee. Context: The problem was sustained at home, resulted from an unknown cause, the patient is able to ambulate, with moderate difficulty, Problem is a result from a previous injury:. Onset: The symptoms/episode began/occurred suddenly. Modifying factors: The symptoms are alleviated by nothing. the symptoms are aggravated by bending knee. Associated signs and symptoms: The patient has no apparent associated signs or symptoms. Severity of symptoms: At their worst the symptoms were severe. The patient has not experienced similar symptoms in the past. The patient has not recently seen a physician. awoke and could not bend left knee. Historical: - Allergies: 11:52 NKA; jh5 - Immunization history:: Adult Immunizations up to date. - Social history:: Smoking status: Patient reports the use of cigarette tobacco products, smokes one pack cigarettes per day. ROS: 13:12 Constitutional: Negative for fever, chills, and weight loss, Eyes: Negative for injury, snw pain, redness, and discharge, ENT: Negative for injury, pain, and discharge, Neck: Negative for injury, pain, and swelling, Cardiovascular: Negative for chest pain, palpitations, and edema, Respiratory: Negative for shortness of breath, cough, wheezing, and pleuritic chest pain, Abdomen/GI: Negative for abdominal pain, nausea, vomiting, diarrhea, and constipation, Back: Negative for injury and pain, : Negative for injury, bleeding, discharge, and swelling, Skin: Negative for injury, rash, and discoloration, Neuro: Negative for headache, weakness, numbness, tingling, and seizure. 13:12 MS/extremity: Positive for decreased range of motion, pain, of the left knee. Exam: 13:08 Constitutional: This is a well developed, well nourished patient who is awake, alert, snw and in no acute distress. Head/Face: Normocephalic, atraumatic. Eyes: Pupils equal round and reactive to light, extra-ocular motions intact. Lids and lashes normal. Conjunctiva and sclera are non-icteric and not injected. Cornea within normal limits. Periorbital areas with no swelling, redness, or edema. ENT: Nares patent. No nasal discharge, no septal abnormalities noted. Tympanic membranes are normal and external auditory canals are clear. Oropharynx with no redness, swelling, or masses, exudates, or evidence of obstruction, uvula midline. Mucous membranes moist. Neck: Trachea midline, no thyromegaly or masses palpated, and no cervical lymphadenopathy. Supple, full range of motion without nuchal rigidity, or vertebral point tenderness. No Meningismus. Chest/axilla: Normal chest wall appearance and motion. Nontender with no deformity. No lesions are appreciated. Cardiovascular: Regular rate and rhythm with a normal S1 and S2. No gallops, murmurs, or rubs. Normal PMI, no JVD. No pulse deficits. Respiratory: Lungs have equal breath sounds bilaterally, clear to auscultation and percussion. No rales, rhonchi or wheezes noted. No increased work of breathing, no retractions or nasal flaring. Abdomen/GI: Soft, non-tender, with normal bowel sounds. No distension or tympany. No guarding or rebound. No evidence of tenderness throughout. Back: No spinal tenderness. No costovertebral tenderness. Full range of motion. Skin: Warm, dry with normal turgor. Normal color with no rashes, no lesions, and no evidence of cellulitis. Neuro: Awake and alert, GCS 15, oriented to person, place, time, and situation. Cranial nerves II-XII grossly intact. Motor strength 5/5 in all extremities. Sensory grossly intact. Cerebellar exam normal. Normal gait. Psych: Awake, alert, with orientation to person, place and time. Behavior, mood, and affect are within normal limits. 13:08 Musculoskeletal/extremity: ROM: limited active range of motion due to pain, limited passive range of motion due to pain, in the left knee, Circulation is intact in all extremities. Sensation intact. Vital Signs: 11:48 BP 140 / 96; Pulse 77; Resp 18; Temp 98.6; Pulse Ox 100% ; Weight 83.91 kg; Height 5 5 ft. 5 in. (165.10 cm); Pain 6/10; 14:16 BP 138 / 88; Pulse 71; Resp 18; Pulse Ox 99% ; Pain 3/10; kb3 11:48 Body Mass Index 30.78 (83.91 kg, 165.10 cm) jh5 MDM: 11:58 Patient medically screened. snw 13:44 Data reviewed: vital signs, nurses notes. Data interpreted: Pulse oximetry: on room air snw is 100 %. Interpretation: normal. Counseling: I had a detailed discussion with the patient and/or guardian regarding: the historical points, exam findings, and any diagnostic results supporting the discharge/admit diagnosis, the presence of at least one elevated blood pressure reading (>120/80) during this emergency department visit, the need for outpatient follow up, to return to the emergency department if symptoms worsen or persist or if there are any questions or concerns that arise at home. Response to treatment: the patient's symptoms have mildly improved after treatment. Special discussion: I have referred the patient to see his PCP for further evaluation of high blood pressure. Based on the history and exam findings, there is no indication for further emergent testing or inpatient evaluation. I discussed with the patient/guardian the need to see the orthopedic surgeon for further evaluation of the symptoms. I discussed with the patient/guardian the need to see the primary care provider for further evaluation of the symptoms. 06/02 13:47 Order name: Crutches; Complete Time: 14:16 snw Administered Medications: 12:57 Drug: Colcrys (colchicine) 1.2 mg Route: PO; kb3 14:00 Follow up: Response: (VIS) Vaccine information sheet provided today. Questions and/or kb3 concerns addressed. VIS edition date: Feb 15, 2021.; Pain is decreased Disposition: 06/03 07:27 Co-signature as Attending Physician, Kedar Queen MD I agree with the assessment and rt plan of care. Disposition Summary: 06/02/22 13:45 Discharge Ordered Location: Home snw Condition: Stable snw Diagnosis - Gout, unspecified snw - Pain in left knee snw - Elevated blood-pressure reading, without diagnosis of hypertension snw Followup: snw - With: Emergency Department - When: As needed - Reason: Worsening of condition Followup: snw - With: Private Physician - When: 2 - 3 days - Reason: Recheck today's complaints, Continuance of care, Re-evaluation by your physician Discharge Instructions: - Discharge Summary Sheet snw - Joint Pain snw - Crutch Use, Adult snw - Gout snw - Hypertension, Adult snw - Musculoskeletal Pain snw - Hypertension, Adult, [id number] snw - Low-Purine Eating Plan snw - Gout, [id number] snw - How to Take Your Blood Pressure, [id number] snw - How to Use Cold Therapy snw - DASH Eating Plan snw - Heat Therapy snw Forms: - Medication Reconciliation Form snw - Thank You Letter snw - Antibiotic Education snw - Prescription Opioid Use snw - Work release form snw Prescriptions: - Mobic 7.5 mg Oral Tablet - take 1 tablet by ORAL route once daily take with food; 20 tablet; Refills: 0, snw Product Selection Permitted - Tramadol 50 mg Oral Tablet - take 1 tablet by ORAL route every 8 hours as needed; 12 tablet; Refills: 0, snw Product Selection Permitted Signatures: Samira Alonzo, DYE BLENDER-C DYE BLENDER-Csnw Yary Moon, RN RN jh5 Kala Gold, KATH RN kb3 Kedar Queen MD MD rt
[2022-06-02 14:27] VITALS: TEMP 98.6
[2022-06-02 14:28] VITALS: BP 138/88; O2SAT 99
== END 2022-06-02 14:17 | disposition home or self-care (01) ==
LOC: ER 10:56
DX: M10.9 Gout, unspecified (principal); R03.0 Elevated blood-pressure reading, without diagnosis of hypertension; F17.210 Nicotine dependence, cigarettes, uncomplicated
CPT/HCPCS: 99284

== ENCOUNTER 2022-12-05 13:09 | Emergency (ER) | payer OTHER, SELFPAY ==
--- OUTSIDE RECORDS SUMMARY | 2022-12-05 13:13 | XMS REPORT | Continuity of Care Document ---
:1980 Author Organization [facility] t Address [address] [place] [address] Care Team Providers Name Role Phone PCP, PATIENT DOES NOT HAVE A Primary Care Physician Unavaila ble VIELKA LOZADA Attending Clinician Unavailable Vielka Lozada DO Attending Clinician Problems Condition Condition Condition Status Onset Resolution Last Treating Co mments Source Name Details Category Date Date Treatment Clinician Date No known No known Disease Unive rs active active ity of problems problems [facility] Allergies, Adverse Reactions, Alerts Allergy Allergy Status Severity Reaction(s) Onset Inactive Treating Comm ents Source Name Type Date Date Clinician NO KNOWN Drug Active Univers ALLERGIE Class ity of [facility] Social History Social Habit Start Date Stop Date Quantity Comments Source Sex Assigned At [birth year] [facility] 00:00:00 00:00:00 Medical [place] Smoking Status Start Date Stop Date Source Tobacco [facility] Medications Ordered Filled Start Stop Current Ordering Indication Dosage Frequency Signature Comments Components Source Medication Medication Date Date Medication? Clinician (SIG) Name Name No known 2021-07 No No known Unive rs medications 0-25 medication it y of 11:51: s [address] Vital Signs Vital Name Observation Time Observation Value Comments Source Systolic blood 2022-05-06 16:45:00 122 mm[Hg] Univer sity of pressure [facility] Diastolic blood 2022-05-06 16:45:00 92 mm[Hg] Unive rsity of pressure [facility] Heart rate 2022-05-06 16:45:00 62 /min [facility] Body temperature 2022-05-06 16:45:00 36.11 Vianca [facility] Respiratory rate 2022-05-06 16:45:00 19 /min [facility] Body height 2022-05-06 16:45:00 165.1 cm [facility] Body weight 2022-05-06 16:45:00 83.915 kg [facility] BMI 2022-05-06 16:45:00 30.79 kg/m2 [facility] Oxygen saturation in 2022-05-06 16:45:00 98 /min [facility] Arterial blood by [facility] Pulse oximetry Branch Procedures Procedure Date / Time Performed Performing Clinician Sour e NOTICE OF PRIVACY 2022-05-06 16:40:23 Doctor Unassigned, No [facility] PRACTICES Name [facility] CONSENT/REFUSAL FOR 2022-05-06 16:39:54 Doctor Unassigned, No [facility] DIAGNOSIS AND Name Medical Branch TREATMENT Encounters Start End Encounter Admission Attending Care Care Encounter Source Date/Time Date/Time Type Type Clinicians Facility Department ID 2022-05-06 2022-05-06 Emergency X KIERRA OHBRIANNA ERT [id number] [facility] 11:47:00 12:21:00 VIELKA waters [facility] 2022-05-06 2022-05-06 Emergency Kierra [facility] [id number] [facility] 11:47:00 12:21:00 [facility]iel[id number] [id number] [facility] [id number] [facility] 084 Branch Results This patient has no known results.
[2022-12-05] MEDS ORDERED: dexAMETHasone 10 MG/ML VIAL ONE (13:32)
[2022-12-05] MEDS ORDERED: KETOROLAC 30 MG/ML INJ ONE (13:32)
--- NOTE | 2022-12-05 14:02 | ER ---
Nurse's Notes [facility] Name: Gen Cast Age: 42 yrs Sex: Male : 1980 Arrival Date: 12/05/2022 Time: 13:09 Bed 15 Private MD: Diagnosis: Gout, unspecified Presentation: 12/05 13:20 Chief complaint: Patient states: Pt reports left foot pain radiating into left knee x1 kb3 day with a history of gout. Coronavirus screen: Vaccine status: Patient reports receiving the 2nd dose of the covid vaccine. Client denies travel out of the [place] in the last 14 days. Ebola Screen: Patient negative for fever greater than or equal to 101.5 degrees Fahrenheit, and additional compatible Ebola Virus Disease symptoms Patient denies exposure to infectious person. Patient denies travel to an Ebola-affected area in the 21 days before illness onset. Initial Sepsis Screen: Does the patient meet any 2 criteria? No. Patient's initial sepsis screen is negative. Does the patient have a suspected source of infection? No. Patient's initial sepsis screen is negative. Risk Assessment: Do you want to hurt yourself or someone else? Patient reports no desire to harm self or others. Onset of symptoms was December 04, 2022. 13:20 Method Of Arrival: Ambulatory kb3 13:20 Acuity: DONN 4 kb3 Triage Assessment: 13:22 General: Appears in no apparent distress. Behavior is calm, cooperative. Pain: kb3 Complains of pain in left lateral malleolus, left medial malleolus and dorsum of left foot Pain radiates to medial aspect of left calf, left plummer and anterior aspect of left ankle Pain currently is 10 out of 10 on a pain scale. Quality of pain is described as pressure, sharp, shooting. Historical: - Allergies: 13:22 NKA; kb3 - Home Meds: 13:22 None [Active]; kb3 - PMHx: 13:22 None; kb3 - PSHx: 13:22 None; kb3 - Immunization history:: Adult Immunizations up to date, Client reports receiving the 2nd dose of the Covid vaccine, Last tetanus immunization: up to date. - Social history:: Smoking status: Patient reports the use of cigarette tobacco products, smokes one-half pack cigarettes per day. Screenin:30 [facility] ED Fall Risk Assessment (Adult) History of falling in the last 3 months, mb9 including since admission No falls in past 3 months (0 pts) Confusion or Disorientation No (0 pts) Intoxicated or Sedated No (0 pts) Impaired Gait No (0 pts) Mobility Assist Device Used No (0 pt) Altered Elimination No (0 pt) Score/Fall Risk Level 0 - 2 = Low Risk Oriented to surroundings, Maintained a safe environment, Educated pt \T\ family on fall prevention, incl call for assistance when getting out of bed. Abuse screen: Denies threats or abuse. Nutritional screening: No deficits noted. Tuberculosis screening: No symptoms or risk factors identified. Assessment: 13:28 Reassessment: see triage assessment. mb9 Vital Signs: 13:20 BP 127 / 81; Pulse 72; Resp 18; Temp 98.6; Pulse Ox 100% ; Weight 83.91 kg; Height 5 kb3 ft. 5 in. ; Pain 10/10; 14:05 BP 124 / 78; Pulse 74; Resp 18; Pulse Ox 100% on R/A; mb9 13:20 Body Mass Index 30.79 (83.91 kg, 165.1 cm) kb3 13:20 Pain Scale: Adult kb3 ED Course: 13:10 Patient arrived in ED. ts1 13:11 Ludin Hugo PA is PHCP. [facility] 13:11 Soham Brandon MD is Attending Physician. [facility] 13:15 Nu Ryan, KATH is Primary Nurse. mb9 13:15 Arm band placed on. mb9 13:22 Triage completed. kb3 13:29 Patient has correct armband on for positive identification. Placed in gown. Bed in low mb9 position. Call light in reach. Side rails up X 1. Client placed on continuous cardiac and pulse oximetry monitoring. NIBP monitoring applied. 13:29 No provider procedures requiring assistance completed. mb9 13:30 Patient did not have IV access during this emergency room visit. mb9 Administered Medications: 13:28 Drug: Dexamethasone IM 10 mg Route: IM; Site: right gluteus; mb9 13:54 Follow up: Response: No adverse reaction mb9 13:28 Drug: Ketorolac IM 30 mg Route: IM; Site: left gluteus; mb9 13:54 Follow up: Response: No adverse reaction mb9 Medication: 13:29 VIS not applicable for this client. mb9 Outcome: 14:02 Discharge ordered by MD. wilkes 14:06 Discharged to home ambulatory. mb9 14:06 Condition: stable 14:06 Discharge instructions given to patient, Instructed on discharge instructions, follow up and referral plans. Demonstrated understanding of instructions, follow-up care, medications, Prescriptions given X 4. 14:06 Patient left the ED. mb9 Signatures: Ludin Hugo PA PA jmm Bradberry, Kelly RN RN kb3 Nu Ryan RN RN mb9 Wanda Lazaro PAS PAS ts1
--- NOTE | 2022-12-05 14:02 | EDPHYS ---
Physician Documentation [facility] Name: Gen Cast Age: 42 yrs Sex: Male : 1980 Arrival Date: 12/05/2022 Time: 13:09 Bed 15 Private MD: ED Physician Soham Brandon HPI: 12/05 13:22 This 42 yrs old Male presents to ER via Ambulatory with complaints of Knee jmm Pain, PAIN ON ANKLE. 13:22 The patient presents with pain, that is acute. The complaints affect the left knee and jmm anterior aspect of left ankle. Onset: The symptoms/episode began/occurred gradually, 1 day(s) ago. Modifying factors: The symptoms are alleviated by the symptoms are aggravated by nothing. Is a 42-year-old male with a history of gout the presents emerged part with complaints of swelling and pain to the left knee and left ankle which she states is consistent with previous gout flares. Patient states that he ran out of his allopurinol. Denies fever.. Historical: - Allergies: 13:22 NKA; kb3 - Home Meds: 13:22 None [Active]; kb3 - PMHx: 13:22 None; kb3 - PSHx: 13:22 None; kb3 - Immunization history:: Adult Immunizations up to date, Client reports receiving the 2nd dose of the Covid vaccine, Last tetanus immunization: up to date. - Social history:: Smoking status: Patient reports the use of cigarette tobacco products, smokes one-half pack cigarettes per day. ROS: 13:22 Constitutional: Negative for fever, chills, and weight loss, Cardiovascular: Negative jmm for chest pain, palpitations, and edema, Respiratory: Negative for shortness of breath, cough, wheezing, and pleuritic chest pain. 13:22 MS/extremity: Positive for pain. 13:22 All other systems are negative. Exam: 13:22 Constitutional: This is a well developed, well nourished patient who is awake, alert, jmm and in no acute distress. Head/Face: atraumatic. Eyes: EOMI, no conjunctival erythema appreciated ENT: Moist Mucus Membranes Neck: Trachea midline, Supple Chest/axilla: Normal chest wall appearance and motion. Cardiovascular: Regular rate and rhythm. No edema appreciated Respiratory: Normal respirations, no respiratory distress appreciated Abdomen/GI: Non distended Back: Normal ROM Skin: General appearance color normal 13:22 Musculoskeletal/extremity: Full range of motion appreciated to the left knee, left ankle, compartments are soft, mild erythema noted, full dorsalis pedis pulse, neurovascular intact. 13:22 Skin: Appearance: Color: normal in color. 13:22 Neuro: Orientation: is normal, Mentation: is normal, Memory: is normal. 13:22 Psych: Behavior/mood is pleasant, cooperative. Vital Signs: 13:20 BP 127 / 81; Pulse 72; Resp 18; Temp 98.6; Pulse Ox 100% ; Weight 83.91 kg; Height 5 kb3 ft. 5 in. ; Pain 10/10; 14:05 BP 124 / 78; Pulse 74; Resp 18; Pulse Ox 100% on R/A; mb9 13:20 Body Mass Index 30.79 (83.91 kg, 165.1 cm) kb3 13:20 Pain Scale: Adult kb3 MDM: 13:22 Patient medically screened. jmm 17:18 Differential diagnosis: Gout. Data reviewed: vital signs, nurses notes. I considered jmm the following discharge prescriptions or medication management in the emergency department Medications were administered in the Emergency Department. See MAR. Counseling: I had a detailed discussion with the patient and/or guardian regarding: the historical points, exam findings, and any diagnostic results supporting the discharge/admit diagnosis, the need for outpatient follow up, to return to the emergency department if symptoms worsen or persist or if there are any questions or concerns that arise at home. ED course: Do not currently suspect septic joint. Patient is afebrile nontoxic. Patient states that his pain is consistent with previous gout flares. Patient advised not to take allopurinol until his gout flare has subsided.. Administered Medications: 13:28 Drug: Dexamethasone IM 10 mg Route: IM; Site: right gluteus; mb9 13:54 Follow up: Response: No adverse reaction mb9 13:28 Drug: Ketorolac IM 30 mg Route: IM; Site: left gluteus; mb9 13:54 Follow up: Response: No adverse reaction mb9 Disposition: 17:29 Co-signature as Attending Physician, Soham Bradnon MD I reviewed the patient's care rn provided by the Advanced Practice Provider and agree with the diagnosis and treatment plan. Disposition Summary: 12/05/22 14:02 Discharge Ordered Location: Home jm Condition: Stable jmm Diagnosis - Gout, unspecified jmm Followup: jmm - With: Private Physician - When: 2 - 3 days - Reason: Recheck today's complaints, Continuance of care, Re-evaluation by your physician Discharge Instructions: - Discharge Summary Sheet jm - Gout jm Forms: - Medication Reconciliation Form [facility] - Thank You Letter [facility] - Antibiotic Education [facility] - Prescription Opioid Use [facility] - Work release form mb9 Prescriptions: - Pepcid 20 mg Oral Tablet - take 1 tablet by ORAL route every 12 hours for 10 days; 20 tablet; Refills: 0, jmm Product Selection Permitted - Allopurinol 100 mg Oral Tablet - take 1 tablet by ORAL route once daily; 30 tablet; Refills: 0, Product jmm Selection Permitted - Diclofenac Sodium 75 mg Oral Tablet Sustained Release - take 1 tablet by ORAL route 2 times per day; 30 tablet; Refills: 0, Product jmm Selection Permitted - Medrol (Kenn) 4 mg Oral Tablets, Dose Pack - take 1 tablet by ORAL route as directed - follow package instructions; 1 jmm packet; Refills: 0, Product Selection Permitted Signatures: Ludin Hugo PA PA jmm Nieto, Roman, MD MD rn Bradberry, Kelly RN RN kb3 Nu Ryan RN RN mb9
[2022-12-05 14:28] VITALS: TEMP 98
[2022-12-05 14:30] VITALS: BP 128/74; O2SAT 99
== END 2022-12-05 14:06 | disposition home or self-care (01) ==
LOC: ER 13:09
DX: M10.9 Gout, unspecified (principal); M25.562 Pain in left knee; F17.210 Nicotine dependence, cigarettes, uncomplicated
CPT/HCPCS: 96372; 99284; J1100